=== PATIENT | female | born 1985 | race Caucasian/White ===

== ENCOUNTER 2023-05-12 18:58 | Emergency (ER) | payer OTHER, SELFPAY ==
[2023-05-12 19:01] VITALS: BP 160/87; PULSE 71; RESP 20; TEMP 36.9; O2SAT 97; BMI 31.6
--- NOTE | 2023-05-12 19:26 | ED.LOWEXI1 ---
HPI - Extremity Injury (Lower) General Chief Complaint: Extremity Injury, Lower Stated Complaint: LT FOOT PAIN Time Seen by Provider: 05/12/23 19:25 Source: patient Mode of arrival: walk-in Limitations: no limitations History of Present Illness HPI Narrative: This 38-year-old female who had bunion surgery and ligament or tendon surgery with Dr. Sanchez in 2020 presents for evaluation of ongoing left foot pain and numbness after she has been walking for a period of time. She denies any recent injury. She has no Pain or swelling. She states she cannot find any shoes that fit her. I offered her several options for shoes that are loosefitting but she states she cannot afford them. She states she tried to call Dr. Sanchez's office at 4:57 PM today but the office was closed. She requests something to wear on her foot like a boot so that she can be more ambulatory for longer periods of time. No additional injuries or complaints. Related Data Home Medications Medication Instructions Recorded Confirmed aripiprazole lauroxil 1,064 mg/3.9 1,064 mg IM .every 2 months 05/12/23 05/12/23 mL suspension,ext.rel IM syringe (Aristada) Allergies Allergy/AdvReac Type Severity Reaction Status Date / Time No Known Drug Allergies Allergy Verified 05/12/23 19:01 Review of Systems ROS Status of ROS 10 or more systems reviewed and unremarkable except as noted in history and below Exam Constitutional Vital Signs - 24 hr 05/12/23 19:01 Temperature 98.5 F Pulse Rate [Monitor] 71 Respiratory Rate 20 Blood Pressure [Right Arm] 160/87 H Pulse Oximetry 97 Oxygen Delivery Method Room Air Documenting provider has reviewed patient's vital signs: yes Common normals: no apparent distress General appearance: cooperative and comfortable Nutritional appearance: overweight Orientation/consciousness: Yes awake, Yes oriented to person, Yes oriented to place and Yes oriented to time Extremity General: normal exam except as noted and other findings (See MDM) Neuro Common normals: oriented x3 Psych Common normals: mental status grossly normal Course Vital Signs Vital signs: Vital Signs Temperature 98.5 F 05/12/23 19:01 Pulse Rate 71 05/12/23 19:01 Respiratory Rate 20 05/12/23 19:01 Blood Pressure 160/87 H 05/12/23 19:01 Pulse Oximetry 97 05/12/23 19:01 Oxygen Delivery Method Room Air 05/12/23 19:01 Temperature 98.5 F 05/12/23 19:01 Pulse Rate 71 05/12/23 19:01 Respiratory Rate 20 05/12/23 19:01 Blood Pressure 160/87 H 05/12/23 19:01 Pulse Oximetry 97 05/12/23 19:01 Oxygen Delivery Method Room Air 05/12/23 19:01 MDM - Extremity Injury (Lower) MDM Narrative Medical decision making narrative: This 38-year-old female who is status post bunion surgery and ligament or tendon repair on the lateral aspect of her left ankle presents for evaluation of left foot pain and numbness when she has been ambulatory for an hour or more. She states that she cannot find any shoes that fit her feet. When I offered her several shoe options she stated that she did not think that she would like them and she could not afford them. She has not had any recent trauma to her foot. She has a well-healed incision on the medial aspect of the left foot with a plate and screws in this area. She is able to move her great toe without difficulty but the remainder of her toes are limited in movement. Her feet are warm and sensate. There is an incision on the lateral aspect of the left ankle. Achilles is intact. There is no sign of any infection. An x-ray of the left foot shows hardware intact With no sign of fracture or dislocation. The patient requests that she be given a walking boot. I explained to her that I do not have any walking boots but I will provide her with a postop shoe as this may help her with ambulation until she can be seen in follow-up with Dr. Sanchez. I strongly encouraged her to follow up with Dr. Sanchez and explained that he would want to know she was having any consultations or difficulty after his surgery. She was medicated emergency department with ibuprofen and will be discharged home with her postop shoe and a prescription for ibuprofen Discharge Plan Discharge Chief Complaint: Extremity Injury, Lower Clinical Impression: Post-op pain, Chronic pain in left foot Time of Disposition Decision: 19:55 Condition: Good Prescriptions / Home Meds: No Action Aristada 1,064 mg/3.9 mL suspension,extended rel syring 1,064 mg IM .every 2 months Instructions: Metatarsalgia (DC) Additional Instructions: Call Dr Sanchez's office for further evaluation and treatment Stand Alone Forms: Portal Instructions Referrals: Kendell Rose MD [Primary Care Provider] - 1 week
--- NOTE | 2023-05-12 19:33 | XR_ITS ---
The [address] [address] Patient Name: KAR SOLIS MRN: [id number] date: 1985 Sex: F Assigned Patient Location: ER Current Patient Location: Accession/Order Number: [id number] Exam Date: 05/12/2023 19:40 Report Date: 05/12/2023 20:12 At the request of: MARLIN MARKER Procedure: XR foot LT min 3V EXAM: XR foot LT min 3V HISTORY: Left foot pain COMPARISON: X-rays 10/23/2021 TECHNIQUE: 3 views FINDINGS: IMPRESSION: Patient is status post first tarsometatarsal and first metatarsal/intermediate cuneiform instrumentation. Internal hardware exhibits no gross fracture. However, again demonstrated is approximately 3.5 mm of the proximal medial cuneiform screw purchasing the lateral cortex of the medial cuneiform extending into the medial cuneiform/intermediate cuneiform joint space with presumed cortical irregularity of the medial aspect of the intermediate cuneiform. No abnormal lucency surrounding the screws. The first tarsometatarsal arthrodesis appears ossified. Degenerative changes of the first metatarsal head. Remainder of the joint spaces are unremarkable. Electronically authenticated by: ARTHUR CALDERON Date: 05/12/2023 20:12
[2023-05-12] MEDS: IBUPROFEN 600 MG TABLET PO (20:06)
== END 2023-05-12 20:11 | disposition home or self-care (01) ==
PROVIDERS: Emergency Provider Emergency Medicine; PCP Family Medicine
DX: M79.672 Pain in left foot (principal); G89.28 Other chronic postprocedural pain; Z79.899 Other long term (current) drug therapy
CPT/HCPCS: 73630; 99283

== ENCOUNTER 2023-05-20 11:45 | Outpatient (OUT) | payer OTHER, SELFPAY ==
[2023-05-20 11:59] LABS: Basophils Percent Auto 0.4 % (0.2-2.0); Eosinophils Absolute Auto 0.1 10^3/uL (0.0-0.7); Eosinophils Percent Auto 1.4 % (0.9-7.0); Hemoglobin 14.4 g/dL (12.0-16.0); Immature Granulocytes Abs Auto 0.04 10^3/uL (0.00-0.03); Immature Granulocytes Pct Auto 0.5 % (0.0-0.5); Lymphocytes Absolute Auto 2.7 10^3/uL (1.2-3.8); Lymphocytes Percent Auto 35.2 % (20.5-60.0); Mean Corpuscular HGB Conc 35.1 g/dL (29.9-35.2); Mean Corpuscular Hemoglobin 29.2 pg (26.7-34.0); Mean Corpuscular Volume 83.2 fL (81.0-99.0); Mean Platelet Volume 9.7 fL (9.5-13.5); Monocytes Absolute Auto 0.4 10^3/uL (0.3-0.8); Monocytes Percent Auto 5.7 % (1.7-12.0); Neutrophils Absolute Auto 4.3 10^3/uL (1.4-6.5); Neutrophils Percent Auto 56.8 % (43.0-75.0); Platelet Count 185 10^3/uL (150-450); Red Blood Count 4.93 10^6/uL (4.20-5.40); Red Cell Distribution Width 12.6 % (11.0-15.0); White Blood Count 7.6 10^3/uL (4.0-11.0)
[2023-05-20 12:23] LABS: Estimated Average Glucose 143 mg/dL; Glycohemoglobin A1C 6.6 % (4.5-6.2)
[2023-05-20 14:01] LABS: Alanine Aminotransferase 30 U/L (14-59); Albumin Level 3.5 g/dL (3.4-5.0); Alkaline Phosphatase 94 U/L (46-116); Aspartate Amino Transferase 8 U/L (15-37); BUN Creatinine Ratio 17.5; Bilirubin Total 0.4 mg/dL (0.2-1.0); Calcium 8.8 mg/dL (8.5-10.1); Carbon Dioxide 27.1 mmol/L (21.0-32.0); Chloride 106 mmol/L (98-107); Cholesterol 199 mg/dL (<=200); Estimated GFR (African America >60 (>=60); Estimated GFR (Non-African Ame >60 (>=60); Free T3 2.81 pg/mL (2.18-3.98); Globulin 3.5 g/dL; Glucose 155 mg/dL (74-106); HDL Cholesterol 33 mg/dL (40-60); Potassium 4.1 mmol/L (3.5-5.1); Sodium 141 mmol/L (136-145); Thyroid Stimulating Hormone 1.801 uIU/mL (0.358-3.740); Triglycerides 457 mg/dL (<=150); VLDL CHOLESTEROL 91.4 mg/dL
[2023-05-20 14:08] LABS: LDL Cholesterol Direct 85 mg/dL
== END 2023-05-20 11:46 | disposition home or self-care (01) ==
LOC: LAB 11:45
PROVIDERS: PCP Family Medicine; Visit Provider Family Medicine
DX: E13.9 Other specified diabetes mellitus without complications (principal)
CPT/HCPCS: 36415; 80053; 80061; 83036; 83540; 83721; 84436; 84443; 84481; 85025

== ENCOUNTER 2023-09-25 11:11 | Outpatient (OUT) | payer OTHER, SELFPAY ==
[2023-09-28 06:08] LABS: H. pylori Stool Ag, EIA Negative (Negative)
== END 2023-09-25 11:12 | disposition home or self-care (01) ==
PROVIDERS: PCP Family Medicine; Visit Provider Family Medicine
DX: R10.84 Generalized abdominal pain (principal); R14.2 Eructation
CPT/HCPCS: 87338

== ENCOUNTER 2023-10-01 16:21 | Emergency (ER) | payer OTHER, SELFPAY ==
[2023-10-01 16:25] VITALS: BP 111/70; PULSE 66; RESP 18; TEMP 36.8; O2SAT 99
--- NOTE | 2023-10-01 16:58 | ED_ITS ---
HPI - Abdominal Pain General Chief Complaint: Abdominal Pain Stated Complaint: Bleed Rectom Time Seen by Provider: 10/01/23 16:27 Source: patient Mode of arrival: walk-in Limitations: no limitations History of Present Illness HPI narrative: patient is a 38-year-old female who presents to the emergency department for the evaluation of bright red blood per rectum. patient states while having a bowel movement today, she noted bright red blood with no clots. She states she is having left lower quadrant abdominal pain. She states she has had ongoing intermittent issues with rectal bleeding for years, she had a colonoscopy for this five years ago that was unremarkable. She states that her PCP Dr. Rose prescribed her cream for her rectum although she states she was told she had no hemorrhoids, and if the cream did not help she should have further workup in the Emergency Room. She has had a previous hysterectomy. No medications taken prior to arrival. Related Data Home Medications Medication Instructions Recorded Confirmed aripiprazole lauroxil 1,064 mg/3.9 1,064 mg IM .every 2 months 05/12/23 05/12/23 mL suspension,ext.rel IM syringe (Aristada) Allergies Allergy/AdvReac Type Severity Reaction Status Date / Time No Known Drug Allergies Allergy Verified 05/12/23 19:01 Review of Systems ROS Constitutional Denies: fever or chills Ears, nose, mouth, and throat Denies: throat pain Cardiovascular Denies: chest pain Respiratory Denies: shortness of breath or cough Gastrointestinal Reports: abdominal pain, nausea and blood in stool; Denies: vomiting or diarrhea Genitourinary Denies: painful urination Musculoskeletal Denies: back pain Integumentary/Breast Denies: rash Exam Narrative Exam Narrative: Gen.: Awake, alert, in no distress Head: Normocephalic, atraumatic ENT: Moist mucous membranes Respiratory: No respiratory distress Gastrointestinal: Abdomen is soft, nondistended and nontender to palpation Rectal: patient examined with Sandra Hernández RN at bedside throughout the duration of the exam. Rectal exam with no active bleeding per rectum, no hemorrhoids noted. Extremities: Moves extremities equally Psych: Normal mood and affect Neuro: No focal neuro deficit Skin: Warm, dry, intact Constitutional Vital Signs, click to edit/add: Last Vital Signs Temp 98.2 F 10/01/23 16:25 Pulse 72 10/01/23 17:40 Resp 18 10/01/23 17:40 BP 132/78 10/01/23 17:40 Pulse Ox 97 10/01/23 17:40 O2 Del Method Room Air 10/01/23 17:40 Course Vital Signs Vital signs: Vital Signs Temperature 98.2 F 10/01/23 16:25 Pulse Rate 66 10/01/23 16:25 Respiratory Rate 18 10/01/23 16:25 Blood Pressure 111/70 10/01/23 16:25 Pulse Oximetry 99 10/01/23 16:25 Oxygen Delivery Method Room Air 10/01/23 16:25 Temperature 98.2 F 10/01/23 16:25 Pulse Rate 72 10/01/23 17:40 Respiratory Rate 18 10/01/23 17:40 Blood Pressure 132/78 10/01/23 17:40 Pulse Oximetry 97 10/01/23 17:40 Oxygen Delivery Method Room Air 10/01/23 17:40 MDM - Abdominal Pain MDM Narrative Medical decision making narrative: lab studies within normal limits, patient with a benign exam, normal vital signs. CT of the abdomen and pelvis with no evidence of acute process. Patient discharged home to follow-up with general surgery for consideration of another colonoscopy as well as her PCP for further evaluation and treatment. Return to the [facility] if symptoms change or worsen. Medical Records Attestation: I reviewed the patient's medical records. Lab Data Attestation: I reviewed the patient's lab results. Labs: Lab Results 10/01/23 10/01/23 Range/Units 17:00 17:08 WBC 9.5 (4.0-11.0) 10^3/uL RBC 4.57 (4.20-5.40) 10^6/uL Hgb 13.7 (12.0-16.0) g/dL Hct 40.0 (36.0-48.0) % MCV 87.5 (81.0-99.0) fL MCH 30.0 (26.7-34.0) pg MCHC 34.3 (29.9-35.2) g/dL RDW 12.5 (11.0-15.0) % Plt Count 209 (150-450) 10^3/uL MPV 9.7 (9.5-13.5) fL Neut % (Auto) 58.8 (43.0-75.0) % Lymph % (Auto) 33.6 (20.5-60.0) % Stephens % (Auto) 4.6 (1.7-12.0) % Eos % (Auto) 2.1 (0.9-7.0) % Baso % (Auto) 0.6 (0.2-2.0) % Neut # (Auto) 5.6 (1.4-6.5) 10^3/uL Lymph # (Auto) 3.2 (1.2-3.8) 10^3/uL Stephens # (Auto) 0.4 (0.3-0.8) 10^3/uL Eos # (Auto) 0.2 (0.0-0.7) 10^3/uL Baso # (Auto) 0.1 (0.0-0.1) 10^3/uL Abs Immat Gran (auto) 0.03 (0.00-0.03) 10^3/uL Imm/Tot Granulo (auto) 0.3 (0.0-0.5) % Sodium 144 (136-145) mmol/L Potassium 3.7 (3.5-5.1) mmol/L Chloride 105 (98-107) mmol/L Carbon Dioxide 29.0 (21.0-32.0) mmol/L Anion Gap 13.7 BUN 12.0 (7.0-18.0) mg/dL Creatinine 0.76 (0.55-1.02) mg/dL Est GFR ( Amer) >60 (>=60) Est GFR (Non-Af Amer) >60 (>=60) BUN/Creatinine Ratio 15.8 Glucose 146 H (74-106) mg/dL Calcium 9.2 (8.5-10.1) mg/dL Total Bilirubin 0.4 (0.2-1.0) mg/dL AST 26 (15-37) U/L ALT 47 (14-59) U/L Alkaline Phosphatase 90 (46-116) U/L Total Protein 7.5 (6.4-8.2) g/dL Albumin 4.0 (3.4-5.0) g/dL Globulin 3.5 g/dL Albumin/Globulin Ratio 1.1 Urine Color Lt. yellow (YELLOW) Urine Clarity Clear (CLEAR) Urine pH 6.0 (5.0-9.0) Ur Specific [place] 1.015 (1.005-1.025) Urine Protein Negative (NEG/TRACE) mg/dL Urine Glucose (UA) Negative (NEGATIVE) mg/dL Urine Ketones Negative (NEGATIVE) mg/dL Urine Occult Blood Negative (NEGATIVE) Urine Nitrite Negative (NEGATIVE) Urine Bilirubin Negative (NEGATIVE) Urine Urobilinogen 0.2 (0.2-1.0) EU/dL Ur Leukocyte Esterase Negative (NEGATIVE) Imaging Data CT scan - abdomen: Attestation: I have reviewed the pertinent imaging results. Radiologist's impression: Procedure: CT abdomen pelvis w con EXAM: CT abdomen pelvis w con TECHNIQUE: Axial CT images were obtained of the abdomen and pelvis with intravenous contrast. Sagittal and coronal reformatted images were also obtained. Dose reduction techniques were achieved by using automated exposure control and/or adjustment of mA and/or kV according to patient size and/or use of iterative reconstruction technique. HISTORY: Rectal bleeding, abdominal pain COMPARISON: 06/26/2020 FINDINGS: Lower chest: The lower lungs are clear. Liver: The liver is homogeneous with normal contours and normal size. Gallbladder: The gallbladder is unremarkable. There is no intra or extrahepatic biliary dilatation. Pancreas: The pancreas is homogeneous without evidence for mass lesion or inflammation. Spleen: The spleen is unremarkable without evidence for mass lesion. Adrenal glands: The adrenal glands are unremarkable Kidneys and bladder: The kidneys are unremarkable with no evidence for mass lesion, hydronephrosis or inflammation. The ureters demonstrate normal caliber. The urinary bladder is unremarkable. GI Tract: Stomach is unremarkable. Visualized small bowel is unremarkable without evidence for obstruction or active inflammation. The appendix is unremarkable.Diverticula are seen of the colon, more significant involving the distal colon. The visualized large bowel is otherwise unremarkable. Reproductive: The uterus has been removed. Lymph nodes: No retroperitoneal or abdominal lymphadenopathy. Vascular: The aorta is not dilated. Mesenteric vessels are patent. Peritoneum: No free intraperitoneal air or fluid. No acute inflammation. Abdominal wall: Unremarkable without acute abnormality. IMPRESSION: No acute abdominal pathology. No acute inflammatory process. No obstructing urinary tract stone. No evidence for bowel obstruction. Electronically authenticated by: MARKUS FABIAN Date: 10/01/2023 18:37 Discharge Plan Discharge Chief Complaint: Abdominal Pain Clinical Impression: Rectal bleeding Patient Disposition: Home, Self-Care Time of Disposition Decision: 18:41 Condition: Good Prescriptions / Home Meds: No Action Aristada 1,064 mg/3.9 mL suspension,extended rel syring 1,064 mg IM .every 2 months Instructions: Rectal Bleeding (ED) Stand Alone Forms: Portal Instructions Referrals: Kendell Rose MD [Primary Care Provider] - 1 week
[2023-10-01] MEDS: HYOSCYAMINE SULFATE 0.125 MG TAB.SUBL SL (17:06)
[2023-10-01] MEDS: ONDANSETRON PF 4 MG/2 ML VIAL IV (17:07)
[2023-10-01] MEDS: KETOROLAC TROMETHAMINE 30 MG/ML VIAL 15 MG IVP (17:07)
[2023-10-01] MEDS: 0.9 % SODIUM CHLORIDE 1,000 ML 999 ML IV (17:08)
[2023-10-01 17:16] LABS: Basophils Absolute Auto 0.1 10^3/uL (0.0-0.1); Basophils Percent Auto 0.6 % (0.2-2.0); Eosinophils Absolute Auto 0.2 10^3/uL (0.0-0.7); Eosinophils Percent Auto 2.1 % (0.9-7.0); Hemoglobin 13.7 g/dL (12.0-16.0); Immature Granulocytes Abs Auto 0.03 10^3/uL (0.00-0.03); Immature Granulocytes Pct Auto 0.3 % (0.0-0.5); Lymphocytes Absolute Auto 3.2 10^3/uL (1.2-3.8); Lymphocytes Percent Auto 33.6 % (20.5-60.0); Mean Corpuscular HGB Conc 34.3 g/dL (29.9-35.2); Mean Corpuscular Volume 87.5 fL (81.0-99.0); Mean Platelet Volume 9.7 fL (9.5-13.5); Monocytes Absolute Auto 0.4 10^3/uL (0.3-0.8); Monocytes Percent Auto 4.6 % (1.7-12.0); Neutrophils Absolute Auto 5.6 10^3/uL (1.4-6.5); Neutrophils Percent Auto 58.8 % (43.0-75.0); Platelet Count 209 10^3/uL (150-450); Red Blood Count 4.57 10^6/uL (4.20-5.40); Red Cell Distribution Width 12.5 % (11.0-15.0); White Blood Count 9.5 10^3/uL (4.0-11.0)
[2023-10-01 17:17] LABS: Bilirubin Urine NEGATIVE (NEGATIVE); Blood Urine NEGATIVE (NEGATIVE); Clarity Urine CLEAR (CLEAR); Color Urine LT. YELLOW (YELLOW); Glucose Urine UA NEGATIVE (NEGATIVE); Ketones Urine NEGATIVE (NEGATIVE); Leukocyte Esterase Urine NEGATIVE (NEGATIVE); Nitrite Urine NEGATIVE (NEGATIVE); Protein Urine NEGATIVE (NEG/TRACE); Specific Gravity Urine 1.015 (1.005-1.025); Urobilinogen Urine 0.2 EU/dL (0.2-1.0)
[2023-10-01 17:19] LABS: Urine Microscopic Indicated NO
[2023-10-01 17:38] LABS: Alanine Aminotransferase 47 U/L (14-59); Albumin Globulin Ratio 1.1; Alkaline Phosphatase 90 U/L (46-116); Anion Gap 13.7; Aspartate Amino Transferase 26 U/L (15-37); BUN Creatinine Ratio 15.8; Bilirubin Total 0.4 mg/dL (0.2-1.0); Calcium 9.2 mg/dL (8.5-10.1); Chloride 105 mmol/L (98-107); Estimated GFR (African America >60 (>=60); Estimated GFR (Non-African Ame >60 (>=60); Globulin 3.5 g/dL; Glucose 146 mg/dL (74-106); Potassium 3.7 mmol/L (3.5-5.1); Sodium 144 mmol/L (136-145); Total Protein 7.5 g/dL (6.4-8.2)
[2023-10-01 17:40] VITALS: BP 132/78; PULSE 72; RESP 18; O2SAT 97
== END 2023-10-01 18:51 | disposition home or self-care (01) ==
PROVIDERS: Physician Assistant; Emergency Provider Emergency Medicine; PCP Family Medicine
DX: K62.5 Hemorrhage of anus and rectum (principal)
CPT/HCPCS: 36415; 74177; 80053; 81003; 85025; 96374; 96375; 99285; Q9967

== ENCOUNTER 2024-01-15 10:03 | Outpatient (OUT) | payer OTHER, SELFPAY ==
[2024-01-15 10:23] LABS: Basophils Percent Auto 0.4 % (0.2-2.0); Eosinophils Absolute Auto 0.2 10^3/uL (0.0-0.7); Hematocrit 41.6 % (36.0-48.0); Hemoglobin 14.2 g/dL (12.0-16.0); Immature Granulocytes Abs Auto 0.03 10^3/uL (0.00-0.03); Immature Granulocytes Pct Auto 0.4 % (0.0-0.5); Lymphocytes Percent Auto 37.1 % (20.5-60.0); Mean Corpuscular HGB Conc 34.1 g/dL (29.9-35.2); Mean Corpuscular Hemoglobin 29.4 pg (26.7-34.0); Mean Corpuscular Volume 86.1 fL (81.0-99.0); Mean Platelet Volume 9.5 fL (9.5-13.5); Monocytes Absolute Auto 0.5 10^3/uL (0.3-0.8); Monocytes Percent Auto 6.3 % (1.7-12.0); Neutrophils Absolute Auto 4.4 10^3/uL (1.4-6.5); Neutrophils Percent Auto 53.8 % (43.0-75.0); Platelet Count 232 10^3/uL (150-450); Red Blood Count 4.83 10^6/uL (4.20-5.40); Red Cell Distribution Width 12.1 % (11.0-15.0); White Blood Count 8.1 10^3/uL (4.0-11.0)
[2024-01-15 10:43] LABS: Estimated Average Glucose 140 mg/dL; Glycohemoglobin A1C 6.5 % (4.5-6.2)
[2024-01-15 11:22] LABS: Alanine Aminotransferase 39 U/L (14-59); Albumin Level 3.7 g/dL (3.4-5.0); Alkaline Phosphatase 82 U/L (46-116); Anion Gap 11.4; Aspartate Amino Transferase 24 U/L (15-37); BUN Creatinine Ratio 13.6; Bilirubin Total 0.4 mg/dL (0.2-1.0); Carbon Dioxide 29.8 mmol/L (21.0-32.0); Chloride 107 mmol/L (98-107); Chol HDL Ratio 4.7; Cholesterol 200 mg/dL (<=200); Estimated GFR (African America >60 (>=60); Estimated GFR (Non-African Ame >60 (>=60); Free T3 2.88 pg/mL (2.18-3.98); Globulin 3.6 g/dL; Glucose 123 mg/dL (74-106); HDL Cholesterol 43 mg/dL (40-60); Potassium 4.2 mmol/L (3.5-5.1); Sodium 144 mmol/L (136-145); Thyroid Stimulating Hormone 1.433 uIU/mL (0.358-3.740); Total Protein 7.3 g/dL (6.4-8.2); Triglycerides 191 mg/dL (<=150); VLDL CHOLESTEROL 38.2 mg/dL
== END 2024-01-15 10:04 | disposition home or self-care (01) ==
LOC: LAB 10:04
PROVIDERS: PCP Family Medicine; Visit Provider Family Medicine
DX: E13.9 Other specified diabetes mellitus without complications (principal); D64.9 Anemia, unspecified
CPT/HCPCS: 36415; 80053; 80061; 83036; 83540; 84436; 84443; 84481; 85025

== ENCOUNTER 2024-05-09 14:49 | Outpatient (OUT) | payer OTHER, SELFPAY ==
--- NOTE | 2024-05-09 14:51 | VEIN_ITS ---
The [address] [address] Patient Name: KAR SOLIS MRN: [id number] date: 1985 Sex: F Assigned Patient Location: Current Patient Location: Accession/Order Number: [id number] Exam Date: 05/09/2024 14:51 Report Date: 05/11/2024 10:59 At the request of: HARPER LOPEZ Procedure: VC Ankle Brachial Index EXAM: VC Ankle Brachial Index HISTORY: R09.89 , left leg pain Indication: COMPARISON: None. FINDINGS: Segmental pressures presented as follows (right, left) in mmHg. Brachial: 141, 151 DPA: 179, 161 FIELD SERVICER: 184, 156 1st Toe: 110, 115 EDWAR: 1.22, 1.07 TBI: 0.73, 0.76 The ABIs are Normal The TBI's are normal PVR waveforms: Not ordered VEIN/VC Ankle Brachial Index IMPRESSION: Normal exam Electronically authenticated by: ARTHUR MONTOYA Date: 05/11/2024 10:59
--- OUTSIDE RECORDS SUMMARY | 2024-05-09 15:03 | XMS_ITS | CCD ---
Author Organization [facility] Care Team Providers Care Promotions Executive Producer Name Role Phone INDURTI, FERNANDO V Unavailable Unavailable INDURTI, FERNANDO V Unavailable Unavailable JAMIL PECK Unavailable Unavailable Harper Rose Primary Care Physician [phone] Justin ROTH Attending Unavailable Justin ROTH Attending Unavailable Albertoy Harper SINGLETON Referring Unavailabl e MARKER ., DR ISAAC Admitting Unavailable MARKER ., DR ISAAC Consulting Unavailable MARKER ., DR ISAAC Attending Unavailable HOY ., DR SALEEM Primary Care Unavailable HOY ., DR SALEEM Consulting Unavailable HOY ., DR SALEEM Attending Unavailable HOY ., DR SALEEM Admitting Unavailable HOY ., DR SALEEM Primary Care Unavailable HOY ., DR SALEEM Consulting Unavailable HOY ., DR SALEEM Attending Unavailable HOY ., DR SALEEM Admitting Unavailable HOY ., DR SALEEM Primary Care Unavailable Norman Issa Attending Unavailab Norman Delarosa Admitting Unavailab Harper Black Primary Care Unavailable Allergies Allergy Classification Reported Allergen(s) Allergy Type Date of Onset Reaction(s) Facility (1 source) No Known Medication Allergies; Translations: [No Known Medication Allergies] Propensity to adverse reactions (disorder) [facility] Repository (1 source) Ciprofloxacin Drug Allergy [address] [place] [address] Repository Medications Current Medications Medication Drug Class(es) Dates Sig (Normalized) Sig (Original) 3.9 ml ARIPiprazole lauroxil 273 mg/ml prefilled syringe (2 sources) Start: 07-08-2020 Aristada 1064 mg/3.9 mL intramuscular suspension, extended release 1,064 mg, IntraMuscular, q4wk, Refills(s) 0 Start Date: 07/08/20 Status: Ordered fenofibrate 145 mg oral tablet (2 sources) Peroxisome Proliferator Receptor alpha Agonist Start: 08-12-2022 take 1 tablet by mouth once daily fenofibrate 145 mg Tab 145 mg = 1 tab(s), Oral, Daily, Refills(s) 0 Start Date: 08/12/22 Status: Ordered Lantus Solostar Pen (2 sources) Start: 07-08-2020 inject 50 [IU] by subcutaneous injection twice daily Lantus Solostar Pen 50 unit(s), SubCutaneous, BID, Refill(s) 0 Start Date: 07/08/20 Status: Ordered rosuvastatin calcium 10 mg oral tablet (2 sources) HMG-CoA Reductase Inhibitor Start: 08-12-2022 take 1 tablet by mouth once daily Crestor 10 mg Tab 10 mg = 1 tab(s), Oral, Daily, Refills(s) 0 Start Date: 08/12/22 Status: Ordered Problems Active Problems Problem Classification Problem Date Documented Da te Episodic/Chronic Alcohol-related disorders (2 sources) Alcoholism 07-08-2020 Chronic Anxiety disorders (2 sources) Anxiety 07-08-2020 Chronic Diabetes mellitus with complications (1 source) Type 2 diabetes mellitus with diabetic neuropathy, unspecified; Translations: [TYPE 2 DM W/DIABETIC NEUROPATHY UNS] Onset: 07-31-2022 Chronic Diabetes mellitus without complication (3 sources) Type 2 diabetes mellitus; Translations: [Type 2 diabetes mellitus without complications] Onset: 03-25-2023 07-08-2020 Chronic Disorders of lipid metabolism (6 sources) Pure hypercholesterolemia; Translations: [Pure hypercholesterolemia, unspecified] Onset: 07-25-2022 08-12-2022 Chronic Diverticulosis and diverticulitis (2 sources) Diverticulosis of sigmoid colon 07-17-2020 Chronic E Codes: Natural/environment (1 source) Bitten or stung by nonvenomous insect and other nonvenomous arthropods, initial encounter; Translations: [BITTEN NONVENOM INSCT OTH ARTH INIT] Onset: 03-25-2023 Episodic Gastrointestinal hemorrhage (2 sources) Rectal hemorrhage 07-08-2020 Episodic Hemorrhoids (3 sources) Hemorrhoids; Translations: [Anal skin tag] 07-08-2020 Episodic Malaise and fatigue (1 source) Other malaise; Translations: [OTHER MALAISE] Onset: 03-25-2023 Episodic Mood disorders (2 sources) Depressive disorder 07-08-2020 Chronic Other aftercare (1 source) Other truck terminal manager (current) drug therapy; Translations: [OTH CORRECTION CURRENT DRUG THERAPY] Onset: 03-25-2023 Episodic Other aftercare (1 source) long term care phlebotomist (current) use of insulin; Translations: [CORRECTION CURRENT USE OF INSULIN] Onset: 03-25-2023 Episodic Other nutritional; endocrine; and metabolic disorders (2 sources) Body mass index 30+ - obesity 08-18-2022 Chronic Residual codes; unclassified (2 sources) Insomnia 07-08-2020 Episodic Residual codes; unclassified (2 sources) Tobacco user 07-17-2020 Episodic Residual codes; unclassified (1 source) Acquired absence of both cervix and uterus; Translations: [ACQUIRED ABSENCE BOTH CERVIX AND UTERUS] Onset: 03-25-2023 Episodic Schizophrenia and other psychotic disorders (5 sources) Schizoaffective disorder, unspecified; Translations: [Paranoid schizophrenia] Onset: 02-08-2018 07-08-2020 Chronic Screening and history of mental health and substance abuse codes (1 source) Tobacco use and exposure - finding 08-23-2022 Chronic Substance-related disorders (2 sources) Cannabis abuse 07-08-2020 Chronic Superficial injury; contusion (4 sources) Insect bite (nonvenomous) of right forearm, initial encounter; Translations: [INSECT BITE RIGHT FOREARM INITIAL] Onset: 03-24-2023 Episodic Unclassified (2 sources) CONTACT W/AND (SUSP) EXPOS COVID-19; Translations: [CONTACT W/AND (SUSP) EXPOS COVID-19] Onset: 10-24-2022 Viral infection (1 source) COVID-19; Translations: [COVID-19] Onset: 10-24-2022 Past or Other Problems Problem Classification Problem Date Documented Da te Episodic/Chronic Allergic reactions (3 sources) Eczema; Translations: [Dermatitis, unspecified] Onset: 07-31-2022 07-08-2020 Episodic Deficiency and other anemia (1 source) Anemia, unspecified; Translations: [ANEMIA UNSPECIFIED] Onset: 07-31-2022 Episodic Diabetes mellitus without complication (1 source) Other abnormal glucose; Translations: [OTHER ABNORMAL GLUCOSE] Onset: 07-31-2022 Episodic Unclassified (1 source) CONTACT W/AND (SUSP) EXPOS COVID-19; Translations: [CONTACT W/AND (SUSP) EXPOS COVID-19] Onset: 10-20-2022 Results Test Name Value Interpretation Reference Range Facility Covid-19 PCR (CVDTB)on SARS-CoV-2 (COVID-19) RNA DENIA+probe Ql (Unsp spec) Detected Critically abnormal NOT DETECTED [facility] Comment on above: Result Comment: This test is not yet approved or cleared by the [place] FDA. When there are no FDA-approved or cleared tests available, and other criteria are met, FDA can make tests available under an emergency access mechanism called an Emergency Use Authorization (EUA). The EUA for this test is supported by the [place] of Health and Human Service's (HHS's) declaration that circumstances exist to justify the emergency use of in vitro diagnostics for the detection and/or diagnosis of the virus that causes COVID-19. This EUA will remain in effect (meaning this test can be used) for the duration of the COVID-19 declaration justifying emergency of IVDs, unless it is terminated or revoked by FDA (after which the test may no longer be used). Performed By: #### C [facility] #### [facility] [address] [place] [address] Dr. Evangelina Eng General Surgery Office/Clini c Noteon 09-28-2022 General Surgery Office/Clinic Note Chief Complaint in-office excisional biopsy HPI Staff Presents for in-office excisional biopsy anal skin tag. History of Present Illness patient here for excisional biopsy of irritated anal skin tag under local anesthesia; no change since recent evaluation. Review of Systems ROS - Provider Constitutional: no fever, no sweats, no weight loss. Eyes: no glasses, no blurred vision, no visual loss. ENMT: no dentures, no hoarseness, no swallowing difficulties, no hearing loss, no ear infection(s), no nose bleeds. Cardiovascular: normal blood pressure, no chest pain, regular heartbeat, no heart murmur. Respiratory: no shortness of breath, no cough, no asthma, no wheezing. Gastrointestinal: no nausea, no vomiting, no diarrhea, no constipation, no blood in stool, no change in bowel habits, no abdominal pain, no hepatitis. Genitourinary: no kidney stones, no urine infection, no dysuria. Musculoskeletal: no pain, no weakness. Skin: no changing moles, no rash, no skin lumps. Neurologic: no seizures, no epilepsy, no headache. Psychiatric: no emotional or psychiatric problem. Heme/Lymph: no bleeding problems, no anemia, no blood clots, no transfusions. Allergy/Immunologic: no swollen lymph nodes/glands, no IV drug abuse. Other: Additional ROS info: Except as noted in the above Review of Systems and in the History of Present Illness, all other systems have been reviewed and are negative or noncontributory. Physical Exam rectal: 1.5 cm x .5 cm anal skin tag, left lateral. Assessment/Plan 1. Anal skin tag (K64.4: Residual hemorrhoidal skin tags) area excised under local anesthesia with 1 % lidocaine, plain; with electrocautery; tolerated well, good hemostasis; keep area clean and dry; sitz baths prn; take ibuprofen as needed for pain; call with problems/questions. Follow-up No qualifying data available Problem List/Past Medical History Ongoing Alcoholism Anal skin tag Anxiety BMI 33.0-33.9,adult Cannabis abuse Controlled type 2 diabetes mellitus with diabetic neuropathy Depression Eczema Hemorrhoids Insomnia Paranoid schizophrenia Pure hypercholesterolemia Rectal bleeding Sigmoid diverticulosis Tobacco abuse Tobacco use Historical No qualifying data Procedure/Surgical History Colonoscopy (07/31/2020), Colonoscopy (08/26/2016), Sling procedure of bladder neck (11/15/2015), GALE - Total abdominal hysterectomy (11/15/2015), Exploratory laparotomy, Removal of ovarian cyst. Medications Aristada 1064 mg/3.9 mL intramuscular suspension, extended release, 1064 mg, IntraMuscular, q4wk Crestor 10 mg Tab, 10 mg= 1 tab(s), Oral, Daily fenofibrate 145 mg Tab, 145 mg= 1 tab(s), Oral, Daily Lantus Solostar Pen, 50 unit(s), SubCutaneous, BID Allergies No Known Allergies No Known Medication Allergies Social History Alcohol Current, Wine, 1-2 times per year, 07/09/2020 Substance Abuse - Denies Substance Abuse, 07/09/2020 Tobacco 10 or more cigarettes (1/2 pack or more)/day in last 30 days Tobacco Use:. Never Smokeless Tobacco Use:. Cigarettes, 1 per day. 14 year(s). Started age 12.0 Years. Yes, 08/18/2022 Family History Cardiac arrest: Mother. Diabetes mellitus type 2: Mother. [facility] Comment on above: Result Comment: Elec tronically Signed By: IRA COREY, Justin Rainey\.br\Date and Time Signed: 09/28/22 16:13 EST Pathology Noteon 09-11-2022 Pathology Note [id number]: 127 [facility] Ambulatory Visit Summaryon 1 Ambulatory Visit Summary REBA DEL RIO :1985 Visit Date:09/08/2022 Ambulatory Visit Instructions Your Care Team Attending Physician - IRA COREY, Justin Rainey Primary Care Physician - Harper Rose MD This Is Your Medications List aripiprazole (Aristada 1064 mg/3.9 mL intramuscular suspension, extended release) fenofibrate (fenofibrate 145 mg Tab) insulin glargine (Lantus Solostar Pen) rosuvastatin (Crestor 10 mg Tab) Procedures Performed Colonoscopy (07/31/2020), Colonoscopy (08/26/2016), Sling procedure of bladder neck (11/15/2015), GALE - Total abdominal hysterectomy (11/15/2015), Exploratory laparotomy, Removal of ovarian cyst. Medications What How Much When Instructions Unchanged aripiprazole (Aristada 1064 mg/ 3.9 mL intramuscular suspension, extended release) 1,064 Milligram Intramuscular Every 4 weeks Unchanged fenofibrate (fenofibrate 145 mg Tab) 1 Tablets By Mouth Every day Unchanged insulin glargine (Lantus Solostar Pen) 50 Units Subcutaneous 2 times a day Unchanged rosuvastatin (Crestor 10 mg Tab) 1 Tablets By Mouth Every day Allergies No Known Allergies No Known Medication Allergies Problems Ongoing - Any problem that you are currently receiving treatment for. Alcoholism Anal skin tag Anxiety BMI 33.0-33.9,adult Cannabis abuse Controlled type 2 diabetes mellitus with diabetic neuropathy Depression Eczema Hemorrhoids Insomnia Paranoid schizophrenia Pure hypercholesterolemia Rectal bleeding Sigmoid diverticulosis Tobacco abuse Tobacco use [facility] Pre-Certification Formon 10- 17-2022 Pre-Certification Form [id number] :127 Normal [facility] Facesheeton 08-20-2022 Facesheet [id number]: 127 Normal [facility] Physician Referralon 022 Physician Referral [id number]: 127 Normal [facility] INSULINon 07-27-2022 Insulin 30.8 uIU/mL Critically high 2.6-24.9 [facility] Comment on above: Performed By: #### I NSULIN #### [facility] [address] [address] [address] Evangelina Eng HEPATITIS PANEL, ACUTEon HBsAg Screen Negative Normal Negative [facility] Comment on above: Performed By: #### H EPACUT #### [facility] [address] [address] [address] Evangelina Eng HCV AB <0.1 Normal 0.0-0.9 [facility] Comment on above: Performed By: #### H EPACUT #### [facility] [address] [address] [address] Evangelina Eng Hep A Ab, IgM Negative Normal Negative [facility] Comment on above: Performed By: #### H EPACUT #### [facility] [address] [address] [address] Evangelina Eng Hep B Core Ab, IgM Negative Normal Negative [facility] Comment on above: Performed By: #### H EPACUT #### [facility] [address] [address] [address] Evangelina Eng Interpretation: Comment Normal [facility] Comment on above: Result Comment: Nega tive Not infected with HCV, unless recent infection is suspected or other evidence exists to indicate HCV infection. Performed By: #### H EPACUT #### [facility] [address] [address] [address] Evangelina Eng T4, T3U, FTI LABCORPon 07-26 Free Thyroxine Index 2.0 Normal 1.2-4.9 [facility] Comment on above: Performed By: #### T HYLC #### [facility] [address] [place] [address] Dr. Evangelina Eng T3 Uptake 30 % Normal 24-39 [facility] Comment on above: Performed By: #### T HYLC #### [facility] [address] [place] [address] Dr. Evangelina Eng T4 [Mass/Vol] 6.8 ug/dL Normal 4.5-12.0 [facility] Comment on above: Performed By: #### T HYLC #### [facility] [address] [place] [address] Dr. Evangelina Eng CBC AUTO DIFFon 07-25-2022 BASO # 0.0 103/ul Normal 0.0-0.1 [facility] Comment on above: Performed By: #### C BC #### [facility] [address] [place] [address] Dr. Evangelina Eng Basophils/100 WBC (Bld) 0.4 % Normal 0.2-2.0 [facility] Comment on above: Performed By: #### C BC #### [facility] [address] [place] [address] Dr. Evangelina Eng EO # 0.1 103/ul Normal 0.0-0.7 [facility] Comment on above: Performed By: #### C BC #### [facility] [address] [place] [address] Dr. Evangelina Eng Eosinophils/100 WBC (Bld) 1.5 % Normal 0.9-7.0 [facility] Comment on above: Performed By: #### C BC #### [facility] [address] [place] [address] Dr. Evangelina Eng Erythrocyte distribution width (RBC) [Ratio] 12.4 % Normal 11.0-15.0 [facility] Comment on above: Performed By: #### C BC #### [facility] [address] [place] [address] Dr. Evangelina Eng Hematocrit (Bld) [Volume fraction] 41.6 % Normal 36.0-48.0 [facility] Comment on above: Performed By: #### C BC #### [facility] [address] [place] [address] Dr. Evangelina Eng Hemoglobin (Bld) [Mass/Vol] 14.2 g/dL Normal 12.0-16.0 [facility] Comment on above: Performed By: #### C BC #### [facility] [address] [place] [address] Dr. Evangelina Eng IG # 0.02 10e3/ul Normal 0.00-0.03 [facility] Comment on above: Performed By: #### C BC #### [facility] [address] [place] [address] Dr. Evangelina Eng IG % 0.3 % Normal 0.0-0.5 [facility] Comment on above: Performed By: #### C BC #### [facility] [address] [place] [address] Dr. Evangelina Eng LYMPH # 2.7 103/ul Normal 1.2-3.8 [facility] Comment on above: Performed By: #### C BC #### [facility] [address] [place] [address] Dr. Evangelina Eng Lymphocytes/100 WBC (Bld) 36.3 % Normal 20.5-60.0 [facility] Comment on above: Performed By: #### C BC #### [facility] [address] [place] [address] Dr. Evangelina Eng MANUAL DIFF REQ NO Normal [facility] Comment on above: Performed By: #### C BC #### [facility] [address] [place] [address] Dr. Evangelina Eng MCH (RBC) [Entitic mass] 29.0 pg Normal 26.7-34.0 [facility] Comment on above: Performed By: #### C BC #### [facility] [address] [place] [address] Dr. Evangelina Eng MCHC (RBC) [Mass/Vol] 34.1 g/dL Normal 29.9-35.2 [facility] Comment on above: Performed By: #### C BC #### [facility] [address] [address] [address] Evangelina Eng MCV (RBC) [Entitic vol] 84.9 fL Normal 81.0-99.0 [facility] Comment on above: Performed By: #### C BC #### [facility] [address] [address] [address] Evangelina Eng MONO # 0.4 103/ul Normal 0.3-0.8 [facility] Comment on above: Performed By: #### C BC #### [facility] [address] [place] [address] Dr. Evangelina Eng Monocytes/100 WBC (Bld) 5.9 % Normal 1.7-12.0 [facility] Comment on above: Performed By: #### C BC #### [facility] [address] [place] [address] Dr. Evangelina Eng NEUT # 4.1 103/ul Normal 1.4-6.5 [facility] Comment on above: Performed By: #### C BC #### [facility] [address] [place] [address] Dr. Evangelina Eng Neutrophils/100 WBC (Bld) 55.6 % Normal 43.0-75.0 [facility] Comment on above: Performed By: #### C BC #### [facility] [address] [place] [address] Dr. Evangelina Eng Platelet mean volume (Bld) [Entitic vol] 9.6 fL Normal 9.5-13.5 [facility] Comment on above: Performed By: #### C BC #### [facility] [address] [place] [address] Dr. Evangelina Eng PLT 224 103/ul Normal 150-450 [facility] Comment on above: Performed By: #### C BC #### [facility] [address] [place] [address] Dr. Evangelina Eng RBC 4.90 106/ul Normal 4.20-5.40 [facility] Comment on above: Performed By: #### C BC #### [facility] [address] [place] [address] Dr. Evangelina Eng WBC 7.4 103/ul Normal 4.0-11.0 [facility] Comment on above: Performed By: #### C BC #### [facility] [address] [place] [address] Dr. Evangelina Eng GLYCOHEMOGLOBIN A1Con 2021 ADA RECOMMENDATION SEE BELOW Normal [facility] Comment on above: Result Comment: ADA RECOMMENDED LIMIT 4.0 - 6.0 ADA THERAPEUTIC TARGET < 7.0 ACTION SUGGESTED > 7.0 Performed By: #### A 1C #### [facility] [address] [place] [address] Dr. Evangelina Eng Glucose [Mass/Vol] 160 mg/dL Normal [facility] Comment on above: Performed By: #### A 1C #### [facility] [address] [place] [address] Dr. Evangelina Eng HbA1c (Bld) [Mass fraction] 7.2 % Critically high 4.5-6.2 [facility] Comment on above: Performed By: #### A 1C #### [facility] [address] [place] [address] Dr. Evangelina Eng IRONon 07-25-2022 Iron [Mass/Vol] 97.0 ug/dL Normal 50.0-170.0 [facility] Comment on above: Performed By: #### I RODGER #### [facility] [address] [place] [address] Dr. Evangelina Eng LIPID PROFILEon 07-25-2022 CHOL-HDL RATIO NORM SEE BELOW Normal [facility] Comment on above: Result Comment: 3.3 - 4.4 LOW RISK 4.4 - 7.1 AVERAGE RISK 7.1 - 11.0 MODERATE RISK >11.0 HIGH RISK Performed By: #### L IPID, CMP, TSH #### [facility] [address] [place] [address] Dr. Evangelina Eng Cholesterol [Mass/Vol] 162 mg/dL Normal <=200 [facility] Comment on above: Performed By: #### L IPID, CMP, TSH #### [facility] [address] [address] [address] Evangelina Eng Cholesterol in HDL [Mass/Vol] 40 mg/dL Normal 40-60 [facility] Comment on above: Performed By: #### L IPID, CMP, TSH #### [facility] [address] [address] [address] Evangelina Eng Cholesterol in LDL [Mass/Vol] 95.0 mg/dL Normal [facility] Comment on above: Performed By: #### L IPID, CMP, TSH #### [facility] [address] [address] [address] Evangelina Eng Cholesterol.total/Ch olesterol in HDL [Mass ratio] 4.1 {ratio} Normal [facility] Comment on above: Performed By: #### L IPID, CMP, TSH #### [facility] [address] [address] [address] Evangelina Eng HDL NORMAL > or = 60 mg/dl - LO W CARDIOVASCULAR RISK <40 mg/dl - HIGH CARDIOVASCULAR RISK Normal [facility] Comment on above: Performed By: #### L IPID, CMP, TSH #### [facility] [address] [address] [address] Evangelina Eng LDL CALC NORMAL SEE BELOW Normal [facility] Comment on above: Result Comment: <100 mg/dl OPTIMAL 100 - 129 mg/dl NEAR OR ABOVE OPTIMAL 130 - 159 mg/dl BORDERLINE HIGH 160 - 189 mg/dl HIGH >190 mg/dl VERY HIGH Performed By: #### L IPID, CMP, TSH #### [facility] [address] [address] [address] Evangelina Eng Triglyceride [Mass/Vol] 135 mg/dL Normal <=150 [facility] Comment on above: Performed By: #### L IPID, CMP, TSH #### [facility] [address] [address] [address] Evangelina Eng VLDL CALC 27.0 mg/dL Normal [facility] Comment on above: Performed By: #### L IPID, CMP, TSH #### [facility] [address] [address] [address] Evangelina Eng PROF 14(COMP METB)on 022 Albumin [Mass/Vol] 3.7 g/dL Normal 3.4-5.0 [facility] Comment on above: Performed By: #### L IPID, CMP, TSH #### [facility] [address] [address] [address] Evangelina Eng Albumin/Globulin [Mass ratio] 1.1 {ratio} Normal [facility] Comment on above: Performed By: #### L IPID, CMP, TSH #### [facility] [address] [address] [address] Evangelina Eng ALP [Catalytic activity/Vol] 77 U/L Normal 46-116 [facility] Comment on above: Performed By: #### L IPID, CMP, TSH #### [facility] [address] [place] [address] Dr. Evangelina Eng ALT [Catalytic activity/Vol] 35 U/L Normal 14-59 [facility] Comment on above: Performed By: #### L IPID, CMP, TSH #### [facility] [address] [place] [address] Dr. Evangelina Eng Anion gap [Moles/Vol] 12.4 mmol/L Normal [facility] Comment on above: Performed By: #### L IPID, CMP, TSH #### [facility] [address] [place] [address] Dr. Evangelina Eng AST [Catalytic activity/Vol] 18 U/L Normal 15-37 [facility] Comment on above: Performed By: #### L IPID, CMP, TSH #### [facility] [address] [place] [address] Dr. Evangelina Eng Bilirubin [Mass/Vol] 0.4 mg/dL Normal 0.2-1.0 [facility] Comment on above: Performed By: #### L IPID, CMP, TSH #### [facility] [address] [place] [address] Dr. Evangelina Eng Calcium [Mass/Vol] 9.1 mg/dL Normal 8.5-10.1 [facility] Comment on above: Performed By: #### L IPID, CMP, TSH #### [facility] [address] [place] [address] Dr. Evangelina Eng Chloride [Moles/Vol] 108 mmol/L Critically high 98-107 [facility] Comment on above: Performed By: #### L IPID, CMP, TSH #### [facility] [address] [place] [address] Dr. Evangelina Eng CO2 [Moles/Vol] 27.7 mmol/L Normal 21.0-32.0 [facility] Comment on above: Performed By: #### L IPID, CMP, TSH #### [facility] [address] [place] [address] Dr. Evangelina Eng Creatinine [Mass/Vol] 0.69 mg/dL Normal 0.55-1.02 [facility] Comment on above: Performed By: #### L IPID, CMP, TSH #### [facility] [address] [place] [address] Dr. Evangelina Eng EGFR-AF FIJIAN >60 Normal >=60 [facility] Comment on above: Performed By: #### L IPID, CMP, TSH #### [facility] [address] [place] [address] Dr. Evangelina Eng EGFR-NON AF FIJIAN >60 Normal >=60 [facility] Comment on above: Performed By: #### L IPID, CMP, TSH #### [facility] [address] [place] [address] Dr. Evangelina Eng Globulin (S) [Mass/Vol] 3.4 g/dL Normal [facility] Comment on above: Performed By: #### L IPID, CMP, TSH #### [facility] [address] [place] [address] Dr. Evangelina Eng Glucose [Mass/Vol] 145 mg/dL Critically high 74-106 [facility] Comment on above: Performed By: #### L IPID, CMP, TSH #### [facility] [address] [place] [address] Dr. Evangelina Eng Potassium [Moles/Vol] 4.1 mmol/L Normal 3.5-5.1 [facility] Comment on above: Performed By: #### L IPID, CMP, TSH #### [facility] [address] [address] [address] Evangelina Eng Protein [Mass/Vol] 7.1 g/dL Normal 6.4-8.2 [facility] Comment on above: Performed By: #### L IPID, CMP, TSH #### [facility] [address] [address] [address] vEangelina Eng Sodium [Moles/Vol] 144 mmol/L Normal 136-145 [facility] Comment on above: Performed By: #### L IPID, CMP, TSH #### [facility] [address] [address] [address] Evangelina Eng Urea nitrogen [Mass/Vol] 6.0 mg/dL Critically low 7.0-18.0 [facility] Comment on above: Performed By: #### L IPID, CMP, TSH #### [facility] [address] [address] [address] Evangelina Eng Urea nitrogen/Creatinine [Mass ratio] 8.7 mg/mg Normal [facility] Comment on above: Performed By: #### L IPID, CMP, TSH #### [facility] [address] [address] [address] Evangelina Eng TSHon 07-25-2022 TSH 1.584 uIU/mL Normal 0.358-3.740 [facility] Comment on above: Performed By: #### L IPID, CMP, TSH #### [facility] [address] [address] [address] Evangelina Eng DISCHARGE SUMMARYon 02-15-20 18 DISCHARGE SUMMARY [address] [id number] DISCHARGE SUMMARYPATIENT NAME: REBA DEL RIO : 1985MED REC NO: [id number] ROOM: [address] [place] [address] NO: [id number] ADMIT DATE: 03/27/2018PROVIDER: Fernando Chacon DISCH DATE: 02/14/2018HISTORY OF PRESENTING ILLNESS AND REASON FOR CURRENT ADMISSION: Thepatient is a 32-year-old female who is having delusions of persecution,delusions of reference, auditory hallucination, and suicidal thoughts, andshe is planning to kill herself, and becomes aggressive and assaultive forno reason. With this[facility]PAST PSYCHIATRIC HISTORY: History of schizoaffective disorder. She deniesany drug and alcohol use.MEDICAL AND SURGICAL HISTORY: She has diabetes type 2 and dyslipidemia.ALLERGIES: She is allergic to CIPROFLOXACIN.COURSE DURING THE HOSPITAL STAY: After getting admitted, she was startedon Abilify 20 mg p.o. daily, Aristada at 662 mg once in a month and lastdose was given on the 02/01/2018, atorvastatin 40 mg p.o. daily, apvbpalvoo47 mg daily, insulin Lantus 80 units subcutaneous two times a day, and withthis, she is stabilized and she is being discharged home.MENTAL STATUS EXAM: At the time of discharge, the patient is cooperative. She has adequate psychomotor activity. She has adequate rapport. Herspeech is within normal limits. Her mood subjectively okay, objectivelyappears to be euthymic. She has appropriate affect. Thought process iswithin normal limits. Thought content predominantly is within normallimits. She denies any hallucinations or delusions. She denies anysuicidal or homicidal thoughts or plans. She is of average intelligence. She is oriented to time, place, and person. Her memory to recent, remote,and immediate events are within normal limits. She has adequate attentionand concentration. Her insight and judgment are fair. Her abstraction isfair.DIAGNOSES:1. Schizoaffective disorder.2. Type 2 diabetes mellitus.3. Dyslipidemia.TREATMENT AND PLAN:1. The patient is discharged.2. [facility] will [facility] with [facility] and perPCP.FERNANDO MAOLNEYID: 02/14/2018 9:51:07 [id number]#: [id number] Doc#: [id number]: Normal [facility] Cult,Urine,CCon 02-12-2018 Cult,Urine,CC Specimen Description .CLEAN CATCH URINE Performed at [facility] [address] [place] [address] Special Requests NOT REPORTEDCulture NO GROWTH Performed at [facility] [address] [place] [address] Report Status FINAL 02/11/2018 Normal [facility] Comment on above: Performed By: #### C DP, CP, TSHX, LIPR ####[facility] [place] [address] #### GLYHGB, FT3, T4, LDLDIR ####[address] [address] Drug Scr, Abuse, Uron 2017 Amphetamine(s),Ur Negative Normal NEG [facility] Comment on above: Result Comment: (Pos itive cutoff 1000 ng/mL) Performed By: #### C DP, CP, TSHX, LIPR ####[address] [address] #### GLYHGB, FT3, T4, LDLDIR ####[address] [address] Barbiturate(s),Ur Negative Normal NEG [facility] Comment on above: Result Comment: (Pos itive cutoff 200 ng/mL) Performed By: #### C DP, CP, TSHX, LIPR ####[address] [address] #### GLYHGB, FT3, T4, LDLDIR ####[address] [address] Base excess Negative Normal NEG [facility] Comment on above: Result Comment: (Pos itive cutoff 300 ng/mL) Performed By: #### C DP, CP, TSHX, LIPR ####[facility] [address] [address] #### GLYHGB, FT3, T4, LDLDIR ####[address] [address] Benzodiazepine(s) Negative Normal NEG [facility] Comment on above: Result Comment: (Pos itive cutoff 200 ng/mL) Performed By: #### C DP, CP, TSHX, LIPR ####[address] [address] #### GLYHGB, FT3, T4, LDLDIR ####[address] [address] Cannabinoid(s),Ur Negative Normal NEG [facility] Comment on above: Result Comment: (Pos itive cutoff 50 ng/mL) Performed By: #### C DP, CP, TSHX, LIPR ####[address] [address] #### GLYHGB, FT3, T4, LDLDIR ####[address] [address] Interpretive Info Assay provides medic al screening only. The absence of expected drug(s) and/or Normal [facility] Comment on above: Result Comment: meta bolite(s) may indicate diluted or adulterated urine, limitations of testing or timing of collection.Testing for legal purposes should be confirmed by another method. To request confirmation of test result, please call the lab within 7 days of sample submission.Performed at [address] [address] Performed By: #### C DP, CP, TSHX, LIPR ####[address] [address] #### GLYHGB, FT3, T4, LDLDIR ####[address] [place] [address] Opiate(s), Ur Negative Normal NEG [facility] Comment on above: Result Comment: (Pos itive cutoff 300 ng/mL) Performed By: #### C DP, CP, TSHX, LIPR ####[facility] [place] [address] #### GLYHGB, FT3, T4, LDLDIR ####[address] [address] Oxycodone, Urine Negative Normal NEG [facility] Comment on above: Result Comment: (Pos itive cutoff 100 ng/mL) Performed By: #### C DP, CP, TSHX, LIPR ####[address] [address] #### GLYHGB, FT3, T4, LDLDIR ####[address] [address] Phencyclidine, Ur Negative Normal NEG [facility] Comment on above: Result Comment: (Pos itive cutoff 25 ng/mL) Performed By: #### C DP, CP, TSHX, LIPR ####[address] [address] #### GLYHGB, FT3, T4, LDLDIR ####[address] [address] Urine, methadone presence Negative Normal NEG [facility] Comment on above: Result Comment: (Pos itive cutoff 300 ng/mL) Performed By: #### C DP, CP, TSHX, LIPR ####[facility] [place] [address] #### GLYHGB, FT3, T4, LDLDIR ####[address] [address] Buprenorphrine, Ur NOT REPORTED Normal NEG [facility] Comment on above: Performed By: #### C DP, CP, TSHX, LIPR ####[address] [address] #### GLYHGB, FT3, T4, LDLDIR ####[address] [address] MDMA, Urine NOT REPORTED Normal NEG [facility] Comment on above: Performed By: #### C DP, CP, TSHX, LIPR ####[address] [address] #### GLYHGB, FT3, T4, LDLDIR ####[address] [address] Methamphetamine, Ur NOT REPORTED Normal NEG [facility] Comment on above: Performed By: #### C DP, CP, TSHX, LIPR ####[address] [address] #### GLYHGB, FT3, T4, LDLDIR ####[address] [address] Propoxyphene,Urine NOT REPORTED Normal NEG [facility] Comment on above: Performed By: #### C DP, CP, TSHX, LIPR ####[address] [address] #### GLYHGB, FT3, T4, LDLDIR ####[address] [address] Urine, tricyclic antidepressants NOT REPORTED Normal NEG [facility] Comment on above: Performed By: #### C DP, CP, TSHX, LIPR ####[address] [address] #### GLYHGB, FT3, T4, LDLDIR ####[facility] [place] [address] UA w/Reflex Cultureon 2017 Acetaminophen mass conc Negative Normal NEG [facility] Comment on above: Performed By: #### U AX, UMICAO ####[address] [address] Bilirubin (direct) Negative Normal NEG [facility] Comment on above: Performed By: #### U AX, UMICAO ####[address] [address] Hemoglobin mass conc (Bld) Negative Normal NEG [facility] Comment on above: Performed By: #### U AX, UMICAO ####[address] [address] Nitrite,Ur Negative Normal NEG [facility] Comment on above: Performed By: #### U AX, UMICAO ####[address] [address] Turbidity CLOUDY Abnormal CLEAR [facility] Comment on above: Performed By: #### U AX, UMICAO ####[address] [address] Urine, color YELLOW Normal YEL [facility] Comment on above: Performed By: #### U AX, UMICAO ####[address] [address] Urine, glucose presence 3+ Abnormal NEG [facility] Comment on above: Performed By: #### U AX, UMICAO ####[address] [address] Urine, leukocyte esterase presence Negative Normal NEG [facility] Comment on above: Result Comment: Perf ormed at [facility] [address] [facility] [place] [address] Performed By: #### U AX, UMICAO ####[facility] [place] [address] Urine, pH 6.0 [pH] Normal 5.0-8.0 [facility] Comment on above: Performed By: #### U AX, UMICAO ####[facility] [facility] [place] [address] Urine, protein presence Negative Normal NEG [facility] Comment on above: Performed By: #### U AX, UMICAO ####[facility] [facility] [place] [address] Urine, specific gravity 1.035 High 1.000-1.030 [facility] Comment on above: Performed By: #### U AX, UMICAO ####[facility] [place] [address], [place] [address] Urobilinogen,Ur Normal Normal NORM [facility] Comment on above: Performed By: #### U AX, UMICAO ####[facility] [place] [address] [place] [address] Comment NOT REPORTED Normal [facility] Comment on above: Performed By: #### U AX, UMICAO ####[address] [address] Urinalysis,Microon 8 ----- Normal [facility] Comment on above: Performed By: #### U AX, UMICAO ####[facility] [place] [address] [place] [address] Urine WBC's 10 TO 20 Normal [facility] Comment on above: Performed By: #### U AX, UMICAO ####[facility] [facility] [place] [address] Urine, amorphous sediment presence in sediment 1+ Abnormal NONE [facility] Comment on above: Result Comment: Perf ormed at [facility] [address] [place] [address] Performed By: #### U AX, UMICAO ####[facility] [place] [address] [place] [address] Urine, bacteria in sediment MODERATE Abnormal NONE [facility] Comment on above: Performed By: #### U AX, UMICAO ####[address] [place] [address] Urine, epithelial cells in sediment 10 TO 20 Normal [facility] Comment on above: Performed By: #### U AX, UMICAO ####[facility] [place] [address], [place] [address] Urine, erythrocytes 0 TO 2 Normal [facility] Comment on above: Performed By: #### U AX, UMICAO ####[address] [place] [address] Epithelial, Renal NOT REPORTED Normal 0 [facility] Comment on above: Performed By: #### U AX, UMICAO ####[address] [place] [address] Mucus Strands NOT REPORTED Normal NONE [facility] Comment on above: Performed By: #### U AX, UMICAO ####[address] [place] [address] Other Observations NOT REPORTED Normal NREQ [facility] Comment on above: Performed By: #### U AX, UMICAO ####[address] [place] [address] Trichomonas NOT REPORTED Normal NONE [facility] Comment on above: Performed By: #### U AXJIMMY ####[address] [address] Urine, casts in sediment NOT REPORTED Normal [facility] Comment on above: Performed By: #### U AXJIMMY ####[address] [address] Urine, crystals in sediment NOT REPORTED Normal NONE [facility] Comment on above: Performed By: #### U AXJIMMY ####[address] [address] Urine, yeast presence in sediment NOT REPORTED Normal NONE [facility] Comment on above: Performed By: #### U JIMMY GARCIA ####[address] [address] CBC with Diffon 02-09-2018 Abs. Basophil 0.00 k/uL Normal 0.0-0.2 [facility] Comment on above: Result Comment: Perf ormed at [facility] [address] [place] [address] Performed By: #### C DP, CP, TSHX, LIPR ####[address] [address] #### GLYHGB, FT3, T4, LDLDIR ####[address] [place] [address] Abs.Neutrophil (Seg) 5.30 k/uL Normal 1.3-9.1 [facility] Comment on above: Performed By: #### C DP, CP, TSHX, LIPR ####[address] [address] #### GLYHGB, FT3, T4, LDLDIR ####[address] [address] Basophils/100 WBC Auto (Bld) 1 % Normal 0-2 [facility] Comment on above: Performed By: #### C DP, CP, TSHX, LIPR ####[facility] [place] [address] #### GLYHGB, FT3, T4, LDLDIR ####[address] [address] Eosinophils 0.00 10*3/uL Normal 0.0-0.4 [facility] Comment on above: Performed By: #### C DP, CP, TSHX, LIPR ####[address] [address] #### GLYHGB, FT3, T4, LDLDIR ####[address] [address] Eosinophils/100 leukocytes 0 % Normal 0-4 [facility] Comment on above: Performed By: #### C DP, CP, TSHX, LIPR ####[address] [address] #### GLYHGB, FT3, T4, LDLDIR ####[address] [address] Erythrocyte distribution width Auto Ratio (RBC) 13.0 % Normal 11.5-14.9 [facility] Comment on above: Performed By: #### C DP, CP, TSHX, LIPR ####[address] [address] #### GLYHGB, FT3, T4, LDLDIR ####[address] [address] Erythrocytes (RBC) 5.36 10*6/uL High 4.0-5.2 [facility] Comment on above: Performed By: #### C DP, CP, TSHX, LIPR ####[facility] [place] [address] #### GLYHGB, FT3, T4, LDLDIR ####[address] [address] Hematocrit (HCT) 46.4 % High 36-46 [facility] Comment on above: Performed By: #### C DP, CP, TSHX, LIPR ####[address] [address] #### GLYHGB, FT3, T4, LDLDIR ####[address] [address] Hemoglobin mass conc (Bld) 16.0 g/dL Normal 12.0-16.0 [facility] Comment on above: Performed By: #### C DP, CP, TSHX, LIPR ####[address] [address] #### GLYHGB, FT3, T4, LDLDIR ####[address] [address] Lymphocytes 3.40 10*3/uL Normal 1.0-4.8 [facility] Comment on above: Performed By: #### C DP, CP, TSHX, LIPR ####[address] [address] #### GLYHGB, FT3, T4, LDLDIR ####[address] [address] Lymphocytes/100 leukocytes 36 % Normal 24-44 [facility] Comment on above: Performed By: #### C DP, CP, TSHX, LIPR ####[address] [address] #### GLYHGB, FT3, T4, LDLDIR ####[address] [address] MCH 29.9 pg Normal 26-34 [facility] Comment on above: Performed By: #### C DP, CP, TSHX, LIPR ####[address] [address] #### GLYHGB, FT3, T4, LDLDIR ####[address] [address] MCHC mass conc (RBC) 34.5 g/dL Normal 31-37 [facility] Comment on above: Performed By: #### C DP, CP, TSHX, LIPR ####[address] [address] #### GLYHGB, FT3, T4, LDLDIR ####[address] [address] MCV 86.5 fL Normal 80-100 [facility] Comment on above: Performed By: #### C DP, CP, TSHX, LIPR ####[address] [address] #### GLYHGB, FT3, T4, LDLDIR ####[address] [address] Monocytes 0.60 10*3/uL Normal 0.1-1.3 [facility] Comment on above: Performed By: #### C DP, CP, TSHX, LIPR ####[address] [address] #### GLYHGB, FT3, T4, LDLDIR ####[address] [address] Monocytes/100 leukocytes 6 % Normal 1-7 [facility] Comment on above: Performed By: #### C DP, CP, TSHX, LIPR ####[address] [address] #### GLYHGB, FT3, T4, LDLDIR ####[address] [address] Neutrophil (Seg) 57 % Normal 36-66 [facility] Comment on above: Performed By: #### C DP, CP, TSHX, LIPR ####[address] [address] #### GLYHGB, FT3, T4, LDLDIR ####[address] [address] Platelet mean volume (PMV) 8.2 fL Normal 6.0-12.0 [facility] Comment on above: Performed By: #### C DP, CP, TSHX, LIPR ####[address] [address] #### GLYHGB, FT3, T4, LDLDIR ####[address] [address] Platelets 216 10*3/uL Normal 150-450 [facility] Comment on above: Performed By: #### C DP, CP, TSHX, LIPR ####[address] [address] #### GLYHGB, FT3, T4, LDLDIR ####[address] [address] WBC (Leukocytes) 9.3 10*3/uL Normal 3.5-11.0 [facility] Comment on above: Performed By: #### C DP, CP, TSHX, LIPR ####[address] [address] #### GLYHGB, FT3, T4, LDLDIR ####[address] [address] Auto Diff Performed NOT REPORTED Normal [facility] Comment on above: Performed By: #### C DP, CP, TSHX, LIPR ####[address] [address] #### GLYHGB, FT3, T4, LDLDIR ####[address] [address] Erythrocyte morphology NOT REPORTED Normal [facility] Comment on above: Performed By: #### C DP, CP, TSHX, LIPR ####[address] [address] #### GLYHGB, FT3, T4, LDLDIR ####[address] [address] Erythrocytes (RBC) NOT REPORTED Normal [facility] Comment on above: Performed By: #### C DP, CP, TSHX, LIPR ####[address] [address] #### GLYHGB, FT3, T4, LDLDIR ####[address] [address] Granulocytes/100 WBC (Bld) NOT REPORTED Normal 0.00-0.30 [facility] Comment on above: Performed By: #### C DP, CP, TSHX, LIPR ####[address] [place] [address] #### GLYHGB, FT3, T4, LDLDIR ####[address] [place] [address] Immature granulocytes #/vol (Bld) NOT REPORTED Normal 0 [facility] Comment on above: Performed By: #### C DP, CP, TSHX, LIPR ####[address] [address] #### GLYHGB, FT3, T4, LDLDIR ####[address] [place] [address] Platelets NOT REPORTED Normal [facility] Comment on above: Performed By: #### C DP, CP, TSHX, LIPR ####[address] [address] #### GLYHGB, FT3, T4, LDLDIR ####[address] [place] [address] WBC Morphology NOT REPORTED Normal [facility] Comment on above: Performed By: #### C DP, CP, TSHX, LIPR ####[address] [address] #### GLYHGB, FT3, T4, LDLDIR ####[address] [place] [address] Comp Metabolic Profon 2017 (cont.) Normal [facility] Comment on above: Result Comment: Aver age GFR for 30-39 years old: 107 mL/min/1.73sq mChronic Kidney Disease: <60 mL/min/1.73sq mKidney failure: <15 mL/min/1.73sq meGFR calculated using average adult body mass. Additional eGFR calculator available at:http://www.ComActivity.com/multiple_crcl_2012.htmPerformed at [facility] [address] [place] [address] Performed By: #### C DP, CP, TSHX, LIPR ####[facility] [place] [address] #### GLYHGB, FT3, T4, LDLDIR ####[address] [address] Alanine aminotransferase (ALT) 18 U/L Normal 5-33 [facility] Comment on above: Performed By: #### C DP, CP, TSHX, LIPR ####[facility] [place] [address] #### GLYHGB, FT3, T4, LDLDIR ####[address] [address] Albumin 3.8 g/dL Normal 3.5-5.2 [facility] Comment on above: Performed By: #### C DP, CP, TSHX, LIPR ####[facility] [place] [address] #### GLYHGB, FT3, T4, LDLDIR ####[address] [address] Alkaline Phos 121 U/L High 35-104 [facility] Comment on above: Performed By: #### C DP, CP, TSHX, LIPR ####[facility] [place] [address] #### GLYHGB, FT3, T4, LDLDIR ####[address] [address] Anion gap 10 mmol/L Normal 9-17 [facility] Comment on above: Performed By: #### C DP, CP, TSHX, LIPR ####[address] [address] #### GLYHGB, FT3, T4, LDLDIR ####[address] [address] Aspartate aminotransferase (AST) 14 U/L Normal <32 [facility] Comment on above: Performed By: #### C DP, CP, TSHX, LIPR ####[address] [address] #### GLYHGB, FT3, T4, LDLDIR ####[address] [address] Bilirubin Ql (U) 0.22 mg/dL Low 0.3-1.2 [facility] Comment on above: Performed By: #### C DP, CP, TSHX, LIPR ####[address] [address] #### GLYHGB, FT3, T4, LDLDIR ####[address] [address] Calcium 8.9 mg/dL Normal 8.6-10.4 [facility] Comment on above: Performed By: #### C DP, CP, TSHX, LIPR ####[address] [address] #### GLYHGB, FT3, T4, LDLDIR ####[address] [address] Chloride 100 mmol/L Normal 98-107 [facility] Comment on above: Performed By: #### C DP, CP, TSHX, LIPR ####[address] [address] #### GLYHGB, FT3, T4, LDLDIR ####[address] [address] CO2 27 mmol/L Normal 20-31 [facility] Comment on above: Performed By: #### C DP, CP, TSHX, LIPR ####[facility] [place] [address] #### GLYHGB, FT3, T4, LDLDIR ####[address] [address] Creatinine 0.54 mg/dL Normal 0.50-0.90 [facility] Comment on above: Performed By: #### C DP, CP, TSHX, LIPR ####[address] [address] #### GLYHGB, FT3, T4, LDLDIR ####[address] [address] eGFR (non-black) mL/min/{1.73_m2} Normal >60 [facility] Comment on above: Performed By: #### C DP, CP, TSHX, LIPR ####[address] [address] #### GLYHGB, FT3, T4, LDLDIR ####[address] [address] Glucose mass conc 368 mg/dL High 70-99 [facility] Comment on above: Performed By: #### C DP, CP, TSHX, LIPR ####[facility] [place] [address] #### GLYHGB, FT3, T4, LDLDIR ####[address] [address] Potassium molar conc 4.3 mmol/L Normal 3.7-5.3 [facility] Comment on above: Performed By: #### C DP, CP, TSHX, LIPR ####[facility] [place] [address] #### GLYHGB, FT3, T4, LDLDIR ####[address] [address] Protein 6.8 g/dL Normal 6.4-8.3 [facility] Comment on above: Performed By: #### C DP, CP, TSHX, LIPR ####[address] [address] #### GLYHGB, FT3, T4, LDLDIR ####[address] [address] Sodium 137 mmol/L Normal 135-144 [facility] Comment on above: Performed By: #### C DP, CP, TSHX, LIPR ####[address] [address] #### GLYHGB, FT3, T4, LDLDIR ####[address] [address] Urea nitrogen 11 mg/dL Normal 6-20 [facility] Comment on above: Performed By: #### C DP, CP, TSHX, LIPR ####[address] [address] #### GLYHGB, FT3, T4, LDLDIR ####[address] [address] Albumin/Globulin Ratio NOT REPORTED Normal 1.0-2.5 [facility] Comment on above: Performed By: #### C DP, CP, TSHX, LIPR ####[facility] [place] [address] #### GLYHGB, FT3, T4, LDLDIR ####[address] [address] BUN/CRE Ratio NOT REPORTED Normal - [facility] Comment on above: Performed By: #### C DP, CP, TSHX, LIPR ####[address] [address] #### GLYHGB, FT3, T4, LDLDIR ####[address] [address] Staging: NOT REPORTED Normal [facility] Comment on above: Performed By: #### C DP, CP, TSHX, LIPR ####[address] [address] #### GLYHGB, FT3, T4, LDLDIR ####[address] [address] Hemoglobin A1Con 02-09-2018 Glucose mass conc 229 mg/dL Normal [facility] Comment on above: Result Comment: The ADA and AACC recommend providing the estimated average glucose result to permit better patient understanding of their HBA1c result.Performed at [address] [address] Performed By: #### C DP, CP, TSHX, LIPR ####[address] [address] #### GLYHGB, FT3, T4, LDLDIR ####[address] [address] Hemoglobin A1c/Hemoglobin.total mass fraction (Bld) 9.6 % High 4.0-6.0 [facility] Comment on above: Performed By: #### C DP, CP, TSHX, LIPR ####[address] [address] #### GLYHGB, FT3, T4, LDLDIR ####[address] [address] LDL Chol, Directon 8 LDL Chol, Direct 150 mg/dL High <100 [facility] Comment on above: Result Comment: Perf ormed at [place] [place] [address] Performed By: #### C DP, CP, TSHX, LIPR ####[address] [address] #### GLYHGB, FT3, T4, LDLDIR ####[address] [address] Lipid Profileon 2018 LDL Cholesterol Normal 0-130 [facility] Comment on above: Result Comment: Calc ulation not valid for Triglyceride value greater than 400 mg/dL.Direct LDL reflexedLDL Guidelines: <100 Desirable 100-129 Near to/above Desirable 130-159 Borderline >159 UndesirableDirect (measured) LDL and calculated LDL are not interchangeable tests. Performed By: #### C DP, CP, TSHX, LIPR ####[address] [address] #### GLYHGB, FT3, T4, LDLDIR ####[address] [address] Cholesterol 258 mg/dL High <200 [facility] Comment on above: Result Comment: Chol esterol Guidelines: <200 Desirable 200-240 Borderline >240 Undesirable Performed By: #### C DP, CP, TSHX, LIPR ####[address] [address] #### GLYHGB, FT3, T4, LDLDIR ####[facility] [place] [address] Cholesterol to HDL Ratio 9.9 {ratio} High <5 [facility] Comment on above: Performed By: #### C DP, CP, TSHX, LIPR ####[facility] [place] [address] #### GLYHGB, FT3, T4, LDLDIR ####[facility] [place] [address] HDL Cholesterol 26 mg/dL Low >40 [facility] Comment on above: Result Comment: HDL Guidelines: <40 Undesirable 40-59 Borderline >59 Desirable Performed By: #### C DP, CP, TSHX, LIPR ####[address] [address] #### GLYHGB, FT3, T4, LDLDIR ####[address] [address] Triglyceride 761 mg/dL High <150 [facility] Comment on above: Result Comment: Trig lyceride Guidelines: <150 Desirable 150- 199 Borderline 200-499 High >499 Very high Based on AHA Guidelines for fasting triglyceride, August 2012.Performed at [facility] [address] [place] [address] Performed By: #### C DP, CP, TSHX, LIPR ####[facility] [place] [address] #### GLYHGB, FT3, T4, LDLDIR ####[facility] [place] [address] Cholesterol in VLDL mass conc NOT REPORTED Normal 1-30 [facility] Comment on above: Performed By: #### C DP, CP, TSHX, LIPR ####[facility] [place] [address] #### GLYHGB, FT3, T4, LDLDIR ####[address] [address] T3, Freeon 02-09-2018 Triiodothyronine (T3) free 3.12 pg/mL Normal 2.02-4.43 [facility] Comment on above: Result Comment: Perf ormed at [address] [address] Performed By: #### C DP, CP, TSHX, LIPR ####[address] [address] #### GLYHGB, FT3, T4, LDLDIR ####[address] [address] TSH w/reflex to FT4on 2017 Thyroid stimulating hormone (TSH) 1.28 m[IU]/L Normal 0.30-5.00 [facility] Comment on above: Result Comment: Perf ormed at [address] [address] Performed By: #### C DP, CP, TSHX, LIPR ####[address] [address] #### GLYHGB, FT3, T4, LDLDIR ####[address] [address] Thyroxine T4on 02-09-2018 Thyroxine (T4) 6.1 ug/dL Normal 4.5-12.0 [facility] Comment on above: Result Comment: Perf ormed at [address] [address] Performed By: #### C DP, CP, TSHX, LIPR ####[address] [address] #### GLYHGB, FT3, T4, LDLDIR ####[facility] [place] [address] Vital Signs Date Time Vital Sign Value Performing Clinician Justin mcknight 08-18-2022 13:27-0400 Blood Pressure Location Justin NILL [facility] 08-18-2022 13:27-0400 Diastolic blood pressure 80 mm[Hg] Justin NILL [facility] 08-18-2022 13:27-0400 Heart rate 76 /min Justin NILL [facility] 08-18-2022 13:27-0400 Respiratory rate 16 /min Justin NILL [facility] 08-18-2022 13:27-0400 Systolic blood pressure 120 mm[Hg] Justin NILL [facility] Encounters Encounter Date Encounter Type Care Provider Facility Start: 04-06-2024 ambulatory Norman Dye acility:[facility] Start: 03-24-2023 End: 03-24-[address] MARLIN SANFORD . Facility: Start: 10-20-2022 End: 10-20-[address] HARPER ROSE . Facility: Start: 09-08-2022 End: 09-09-2022 ambulatory Justin R NILL Facility:[facility] Start: 09-08-2022 End: 09-08-2022 Patient encounter procedure Justin R NILL [facility] Start: 08-18-2022 End: 08-19-2022 ambulatory Justin R NILL Facility:[facility] Start: 08-18-2022 End: 08-18-2022 Patient encounter procedure Justin R NILL [facility] Start: 07-25-2022 End: 07-26-[address] HARPER ROSE . Facility:[facility] Start: 02-08-2018 End: 02-14-2018 Evaluation and management of inpatient FERNANDO V INDURTI [facility] Procedures Date Procedure Procedure Detail Performing Clinician Start: 07-31-2020 Jaison ONEILL Start: 02-14-2018 POCT GLUCOSE FERNANDO INDURTI Start: 02-14-2018 DISCHARGE PATIENT SREEK ANTH INDURTI Start: 02-14-2018 POCT GLUCOSE FERNANDO INDURTI Start: 02-14-2018 POC GLUCOSE FINGERSTICK FERNANDO INDURTI Start: 02-14-2018 POCT GLUCOSE FERNANDO INDURTI Start: 02-13-2018 POC GLUCOSE FINGERSTICK FERNANDO INDURTI Start: 02-13-2018 POCT GLUCOSE FERNANDO INDURTI Start: 02-13-2018 POC GLUCOSE FINGERSTICK FERNANDO INDURTI Start: 02-13-2018 POCT GLUCOSE FERNANDO INDURTI Start: 02-13-2018 POC GLUCOSE FINGERSTICK FERNANDO INDURTI Start: 02-13-2018 POC GLUCOSE FINGERSTICK FERNANDO INDURTI Start: 02-13-2018 POCT GLUCOSE FERNANDO INDURTI Start: 02-13-2018 POCT GLUCOSE FERNANDO INDURTI Start: 02-12-2018 POC GLUCOSE FINGERSTICK FERNANDO INDURTI Start: 02-12-2018 POCT GLUCOSE FERNANDO INDURTI Start: 02-12-2018 POC GLUCOSE FINGERSTICK FERNANDO INDURTI Start: 02-12-2018 POC GLUCOSE FINGERSTICK FERNANDO INDURTI Start: 02-12-2018 POCT GLUCOSE FERNANDO INDURTI Start: 02-12-2018 POC GLUCOSE FINGERSTICK FERNANDO INDURTI Start: 02-12-2018 POCT GLUCOSE FERNANDO INDURTI Start: 02-12-2018 POCT GLUCOSE FERNANDO INDURTI Start: 02-11-2018 POC GLUCOSE FINGERSTICK FERNANDO INDURTI Start: 02-11-2018 POCT GLUCOSE FERNANDO INDURTI Start: 02-11-2018 POC GLUCOSE FINGERSTICK FERNANDO INDURTI Start: 02-11-2018 POCT GLUCOSE FERNANDO INDURTI Start: 02-11-2018 POC GLUCOSE FINGERSTICK FERNANDO INDURTI Start: 02-11-2018 POCT GLUCOSE FERNANDO INDURTI Start: 02-11-2018 POC GLUCOSE FINGERSTICK FERNANDO INDURTI Start: 02-11-2018 POCT GLUCOSE FERNANDO INDURTI Start: 02-10-2018 POC GLUCOSE FINGERSTICK FERNANDO INDURTI Start: 02-10-2018 POCT GLUCOSE FERNANDO INDURTI Start: 02-10-2018 POC GLUCOSE FINGERSTICK FERNANDO INDURTI Start: 02-10-2018 URINE CULTURE CLEAN CATCH FERNANDO INDURTI Start: 02-10-2018 Microscopic urinalysis FERNANDO INDURTI Start: 02-10-2018 URINE DRUG SCREEN SREEK ANTH INDURTI Start: 02-10-2018 URINE RT REFLEX TO CULTURE FERNANDO INDURTI Start: 02-10-2018 POCT GLUCOSE FERNANDO INDURTI Start: 02-10-2018 POC GLUCOSE FINGERSTICK FERNANDO INDURTI Start: 02-10-2018 POCT GLUCOSE FERNANDO INDURTI Start: 02-10-2018 POC GLUCOSE FINGERSTICK FERNANDO INDURTI Start: 02-10-2018 POCT GLUCOSE FERNANDO INDURTI Start: 02-09-2018 POC GLUCOSE FINGERSTICK FERNANDO INDURTI Start: 02-09-2018 POCT GLUCOSE FERNANDO INDURTI Start: 02-09-2018 POC GLUCOSE FINGERSTICK FERNANDO INDURTI Start: 02-09-2018 POC GLUCOSE FINGERSTICK FERNANDO INDURTI Start: 02-09-2018 POCT GLUCOSE FERNANDO INDURTI Start: 02-09-2018 POC GLUCOSE FINGERSTICK FERNANDO INDURTI Start: 02-09-2018 POCT GLUCOSE FERNANDO INDURTI Start: 02-09-2018 CBC WITH AUTO DIFFERENTIAL FERNANDO INDURTI Start: 02-09-2018 COMPREHENSIVE METABO LIC PANEL FERNANDO INDURTI Start: 02-09-2018 HEMOGLOBIN A1C SREEKANT H INDURTI Start: 02-09-2018 LDL CHOLESTEROL, DIRECT FERNANDO INDURTI Start: 02-09-2018 Lipid panel FERNANDO INDURTI Start: 02-09-2018 T3, FREE FERNANDO INDURTI Start: 02-09-2018 T4 FERNANDO INDURTI Start: 02-09-2018 TSH WITH REFLEX SREEKAN TH INDURTI Start: 02-09-2018 POCT GLUCOSE FERNANDO INDURTI Start: 02-09-2018 VITAL SIGNS FERNANDO INDURTI Start: 02-09-2018 IP CONSULT TO SEWER MAINTENANCE SUPERVISOR AL MEDICINE FERNANDO INDURTI Start: 02-09-2018 POC GLUCOSE FINGERSTICK FERNANDO INDURTI Start: 02-09-2018 MISCELLANEOUS NURSIN G CARE ORDER (SPECIFY) FERNANDO INDURTI Start: 02-08-2018 DIET GENERAL FERNANDO INDURTI Start: 02-08-2018 FULL CODE FERNANDO INDURTI Start: 02-08-2018 IP CONSULT TO HISTOR Y AND PHYSICAL FERNANDO INDURTI Start: 02-08-2018 OFF UNIT PRIVILEGES SRE EKANTH INDURTI Start: 02-08-2018 UNRESTRICTED VISITAT ION STATUS FERNANDO INDURTI Start: 02-08-2018 PATIENT STATUS (DIRECT) FERNANDO INDURTI Start: 08-26-2016 Colonoscopy Justin BRAVO LL Start: 11-15-2015 Repair of stress incontinence by suprapubic sling Justin MIGUELL Start: 11-15-2015 Total abdominal hysterectomy Justin ROTH Exploratory laparotomy Jesus ladan LAMONTL Removal of ovarian cyst Dony ael NILL Payers Date Payer Category Payer Self-pay 1984 Unknown [id number] [id number] [id number] 1984 Unknown [id number] 2.16.8 [id number] 1984 Unknown [id number] 2.16.84 [id number] 1984 Unknown [id number] 2.16.84 [id number] 1984 Unknown [id number] 2.16.84 [id number] 1959 Unknown [id number] 1959 Unknown [id number] Unknown [id number] 2.16.8 [id number] Social History Date Type Detail Facility Start: 08-18-2022 Tobacco smoking status Heavy t obacco smoker (finding) [facility] Tobacco smoking status Never [facility] Sex Assigned At Female [facility] Functional Status Date Assessment Result Facility 08-18-2022 Functional Status N/A [facility] 08-23-2022 Note Date & Type Note Facility 08-23-2022 Note Chief Complaint consultation for hemorrhoid HPI Staff 37 year old female presents on consultation from Dr. Rose for painful, bleeding hemorrhoid. Reports several month history of external nodule near anus that waxes and wanes in size. Intermittent pain/tenderness and bleeding. Prescribed Hydrocortisone-Pramoxine cream BID, patient did not pick this up from pharmacy. She has not tried any OTC medications. Last colonoscopy completed 07/2020 with rectal inflammation. History of Present Illness 37 yo female with h/o DMII, hypercholesterolemia, schizophrenia, referred for intermittent perianal irritation and bleeding with wiping; no change in bms or blood in stools, colonoscopy 2 years ago with small area of rectal inflammation; no hard stools, or decreased caliber of stools; no N/V or abd pains; no asa or NSAID use; no tobacco use. Review of Systems PHQ Score Initial Depression Screen Score: 0 ROS - Provider Constitutional: no fever, no sweats, no weight loss. Eyes: no glasses, no blurred vision, no visual loss. ENMT: no dentures, no hoarseness, no swallowing difficulties, no hearing loss, no ear infection(s), no nose bleeds. Cardiovascular: normal blood pressure, no chest pain, regular heartbeat, no heart murmur. Respiratory: no shortness of breath, no cough, no asthma, no wheezing. Gastrointestinal: no nausea, no vomiting, no diarrhea, no constipation, no blood in stool, no change in bowel habits, no abdominal pain, no hepatitis. Genitourinary: no kidney stones, no urine infection, no dysuria. Musculoskeletal: no pain, no weakness. Skin: no changing moles, no rash, no skin lumps. Neurologic: no seizures, no epilepsy, no headache. Psychiatric: no emotional or psychiatric problem. Heme/Lymph: no bleeding problems, no anemia, no blood clots, no transfusions. Allergy/Immunologic: no swollen lymph nodes/glands, no IV drug abuse. Other: Additional ROS info: Except as noted in the above Review of Systems and in the History of Present Illness, all other systems have been reviewed and are negative or noncontributory. Physical Exam Vitals & Measurements HR: 76(Peripheral) RR: 16 BP: 120/80 HT: 67 in HT: 170.1 cm WT: 97.3 kg WT: 214.06 lb BMI: 33.63 HEENT: normal conjunctiva, sclera clear, no scleral icterus, EOM intact, PERRLA, oral mucosa moist without lesions. Neck: trachea midline, no mass, symmetric, no thyromegaly or nodules, no adenopathy Respiratory: lungs CTA, respirations non labored. Cardiovascular: regular rate and rhythm, no murmur, no pedal edema or varicosities. Lymphatic: no cervical adenopathy, rectal: no masses or blood, no fissures, no external hemorrhoids; 1 x .5 cm skin tag, no ulceration or bleeding Musculoskeletal: normal gait, digits and nails without infection, nodes, cyanosis, clubbing. Skin: no rashes, no lesions, no ulcers, no subcutaneous nodules, induration. Psychiatric/Neuro: oriented to time, place, person, judgement normal, affect appropriate for age, insight intact, no focal deficits. Tests: review of old records completed, Discussed surgical options, risks, and possible complications with patient. Assessment/Plan 1. Anal skin tag (K64.4: Residual hemorrhoidal skin tags) plan excisional biopsy under local anesthesia in the office, informed consent obtained. 2. Tobacco use (Z72.0: Tobacco use) We strongly recommend to quit tobacco use. Cigarette smoking harms nearly every organ of the body, causes many diseases, and reduces the health of smokers in general. Quitting smoking lowers your risk for smoking-related diseases and can add years to your life. We encourage you to visit www.smokefree.gov access to helpful resources including free telephone support. If you decide on prescription treatment to help you quit, your family doctor would be happy to provide these. 3. BMI 33.0-33.9,adult (Z68.33: Body mass index [BMI] 33.0-33.9, adult) recommend diet and exercise. Follow-up No qualifying data available Problem List/Past Medical History Ongoing Alcoholism Anal skin tag Anxiety BMI 33.0-33.9,adult Cannabis abuse Controlled type 2 diabetes mellitus with diabetic neuropathy Depression Eczema Hemorrhoids Insomnia Paranoid schizophrenia Pure hypercholesterolemia Rectal bleeding Sigmoid diverticulosis Tobacco abuse Tobacco use Historical No qualifying data Procedure/Surgical History Colonoscopy (07/31/2020), Colonoscopy (08/26/2016), Sling procedure of bladder neck (11/15/2015), [facility] - Total abdominal hysterectomy (11/15/2015), Exploratory laparotomy, Removal of ovarian cyst. Medications Aristada 1064 mg/3.9 mL intramuscular suspension, extended release, 1064 mg, IntraMuscular, q4wk Crestor 10 mg Tab, 10 mg= 1 tab(s), Oral, Daily fenofibrate 145 mg Tab, 145 mg= 1 tab(s), Oral, Daily Lantus Solostar Pen, 50 unit(s), SubCutaneous, BID Allergies No Known Allergies No Known Medication Allergies Social History Alcohol Current, Wine, 1-2 time (more content not included)... [facility] Comment on above: Result Comment: Elec tronically Signed By: Justin ROTH MD\.br\Date and Time Signed: 08/23/22 17:58 EDT Evaluation + Plan note Note Date & Type Note Facility Evaluation + Plan note Future Appointments Appointment Date:09/09/2022 02:00:00 PM Scheduled Provider:Justin ROTH MD Location:[facility] Appointment Type: Procedure 30 [facility] Hospital course Narrative Note Date & Type Note Facility Hospital course Narrative No data available for this section [facility] Discharge instructions Note Date & Type Note Facility Hospital Discharge instructions No data available for this section [facility] Progress note Note Date & Type Note Facility Progress note No data available for this section [facility] Summary Purpose Family History No Family History Records FoundNo Family History Records FoundNo Family History Records FoundNo Family History Records Found Advance Directives No Advanced Directives Records FoundNo Advanced Directives Records FoundNo Advanced Directives Records FoundNo Advanced Directives Records Found Additional Source Comments INFORMATION SOURCE (unrecogn ized section and content) DATE CREATED AUTHOR 05/05/2018 [facility] DATE CREATED AUTHOR AUTHOR'S ORGANIZ ATION 09/28/2022 [facility] DATE CREATED AUTHOR AUTHOR'S ORGANIZ ATION 03/25/2023 [facility] DATE CREATED AUTHOR AUTHOR'S ORGANIZ ATION 04/13/2024 [facility] Patient Care team informatio n (unrecognized section and content) Personnel Name: Harper Rose MD Address: Address: [address] [place] [address] Personnel Name: Harper Rose MD Address: Address: [address] [place] [address] FOR RECORDS PERTAINING TO PATIENTS WHO ARE OR HAVE BEEN ENROLLED IN A CHEMICAL DEPENDENCY/SUBSTANCEABUSE PROGRAM, SOME INFORMATION MAY BE OMITTED. This clinical summary was aggregated from multiple sources. Caution should be exercised in using it in the provision of clinical care. This summary normalizes information from multiple sources, and as a consequence, information in this document may materially change the coding, format and clinical context of patient data. In addition, data may be omitted in some cases. CLINICAL DECISIONS SHOULD BE BASED ON THE PRIMARY CLINICAL RECORDS. [facility]. provides no warranty or guarantee of the accuracy or completeness of information in this document.
== END 2024-05-09 14:50 | disposition home or self-care (01) ==
LOC: VC 14:49
PROVIDERS: PCP Family Medicine; Visit Provider Family Medicine
DX: M79.605 Pain in left leg (principal); R09.89 Other specified symptoms and signs involving the circulatory and respiratory systems
CPT/HCPCS: 93922

== ENCOUNTER 2024-12-05 12:02 | Emergency (ER) | payer OTHER, SELFPAY ==
[2024-12-05 12:16] VITALS: BP 144/94; PULSE 70; TEMP 36.6; O2SAT 99; BMI 29.4
[2024-12-05 13:04] LABS: Basophils Percent Auto 0.5 % (0.2-2.0); Eosinophils Absolute Auto 0.1 10^3/uL (0.0-0.7); Eosinophils Percent Auto 1.5 % (0.9-7.0); Hematocrit 42.8 % (36.0-48.0); Immature Granulocytes Abs Auto 0.01 10^3/uL (0.00-0.03); Immature Granulocytes Pct Auto 0.1 % (0.0-0.5); Lymphocytes Absolute Auto 2.9 10^3/uL (1.2-3.8); Lymphocytes Percent Auto 38.4 % (20.5-60.0); Mean Corpuscular Hemoglobin 29.9 pg (26.7-34.0); Mean Corpuscular Volume 85.4 fL (81.0-99.0); Mean Platelet Volume 9.3 fL (9.5-13.5); Monocytes Absolute Auto 0.4 10^3/uL (0.3-0.8); Monocytes Percent Auto 5.1 % (1.7-12.0); Neutrophils Absolute Auto 4.1 10^3/uL (1.4-6.5); Neutrophils Percent Auto 54.4 % (43.0-75.0); Platelet Count 210 10^3/uL (150-450); Red Blood Count 5.01 10^6/uL (4.20-5.40); White Blood Count 7.5 10^3/uL (4.0-11.0)
[2024-12-05 13:08] LABS: Bilirubin Urine NEGATIVE (NEGATIVE); Blood Urine NEGATIVE (NEGATIVE); Clarity Urine CLEAR (CLEAR); Color Urine LT. YELLOW (YELLOW); Glucose Urine UA NEGATIVE (NEGATIVE); Ketones Urine NEGATIVE (NEGATIVE); Leukocyte Esterase Urine NEGATIVE (NEGATIVE); Nitrite Urine NEGATIVE (NEGATIVE); Protein Urine NEGATIVE (NEG/TRACE); Specific Gravity Urine <=1.005 (1.005-1.025); Urobilinogen Urine 0.2 EU/dL (0.2-1.0); pH Urine 6.5 (5.0-9.0)
[2024-12-05 13:09] LABS: Urine Microscopic Indicated NO
[2024-12-05 13:27] LABS: Alanine Aminotransferase 43 U/L (14-59); Albumin Globulin Ratio 1.1; Albumin Level 3.6 g/dL (3.4-5.0); Alkaline Phosphatase 118 U/L (46-116); Anion Gap 14.8; Aspartate Amino Transferase 16 U/L (15-37); Bilirubin Total 0.4 mg/dL (0.2-1.0); Calcium 8.8 mg/dL (8.5-10.1); Carbon Dioxide 28.3 mmol/L (21.0-32.0); Chloride 105 mmol/L (98-107); Estimated GFR (African America >60 (>=60 mL/min/1.73m^2); Estimated GFR (Non-African Ame >60 (>=60 mL/min/1.73m^2); Globulin 3.4 g/dL; Glucose 133 mg/dL (74-106); Potassium 4.1 mmol/L (3.5-5.1); Sodium 144 mmol/L (136-145)
[2024-12-05 13:29] LABS: Lactate/Lactic Acid 1.2 mmol/L (0.4-2.0)
--- NOTE | 2024-12-05 13:34 | ED_ITS ---
HPI - Abdominal Pain General Chief Complaint: Abdominal Pain Stated Complaint: abdominal pain Time Seen by Provider: 12/05/24 12:22 Source: patient Mode of arrival: walk-in Limitations: no limitations History of Present Illness HPI narrative: The patient is a 39-year-old female coming to the ER with a lower abdominal pain that comes only when she is coughing or straining, patient mentioned that she have no nausea no vomiting no change in bowel movement, the patient denies being sick right now she has been having this symptoms for the last week, the patient does not come in certain movement or on palpation but it is there only whenever she coughs or strains ,patient never noticed any bulging, or hernia She have a history of hysterectomy Related Data Home Medications ?Medication ?Instructions ?Recorded ?Confirmed aripiprazole lauroxil 1,064 mg/3.9 1,064 mg IM .every 2 months 05/12/23 12/05/24 mL suspension,ext.rel IM syringe (Aristada) bupropion HCl 75 mg tablet 75 mg PO DAILY 12/05/24 12/05/24 dextromethorphan IR 45 PO 12/05/24 mg-bupropion ER 105 mg biphasic tablet (Auvelity) insulin glargine 100 unit/mL 25 unit subcut BID 12/05/24 12/05/24 subcutaneous solution (Lantus U-100 Insulin) olanzapine 2.5 mg tablet 2.5 mg PO BID PRN anxiety 12/05/24 12/05/24 pantoprazole 40 mg tablet,delayed 40 mg PO DAILY 12/05/24 12/05/24 release pregabalin 25 mg capsule mg 12/05/24 pregabalin 50 mg capsule 50 mg PO DAILY PRN restles legs 12/05/24 12/05/24 rosuvastatin 10 mg tablet 10 mg PO DAILY 12/05/24 12/05/24 semaglutide 2 mg/dose (8 mg/3 mL) 2 mg subcut .weekly 12/05/24 12/05/24 subcutaneous pen injector (Ozempic) Allergies Allergy/AdvReac Type Severity Reaction Status Date / Time No Known Drug Allergies Allergy Verified 12/05/24 12:12 Review of Systems ROS Status of ROS 10 or more systems reviewed and unremark able except as noted in history and below PFSH PFSH Social History Little interest or pleasure in doing things: not at all Feeling down, depressed, or hopeless: not at all Exam Narrative Exam Narrative: Nurses notes and vital signs reviewed and patient is not hypoxic. General: Well-appearing and in no apparent distress. Skin: Warm, dry, no pallor noted. No rash. Head: Normocephalic, atraumatic. Neck: Supple, non-tender. Eye: Pupils are equal, round and EOMI. No scleral icterus. Ears, Nose, Mouth, and Throat: TM are clear, no nasal mucosal hypertrophy. Oral mucosa is moist, no posterior oropharynx erythema, uvula is mid-line Cardiovascular: Regular Rate and Rhythm without murmur, gallop or rub. Respiratory: No accessory muscle use or respiratory distress. Lungs are clear to auscultation, no wheezing, rales or rhonchi Chest Wall: no tenderness Back: No midline thoracic or lumbar vertebral tenderness. No CVA tenderness Musculoskeletal: normal ROM, no calf or popliteal tenderness, no lower extremity edema/swelling GI: Abdomen is soft, non-distended. Normal bowel sounds. No masses appreciated. No tenderness to palpation. No rebound, guarding, or rigidity noted. Neurological: A&O x4. No cranial nerve dysfunction observed. No truncal ataxia. Moves all extremities. Sensation intact. Psychiatric: Cooperative and interactive. Normal mood and affect. Constitutional Vital Signs, click to edit/add: Last Vital Signs Temp 97.8 F 12/05/24 12:16 Pulse 70 12/05/24 12:16 Resp 20 12/05/24 12:16 BP 144/94 H 12/05/24 12:16 Pulse Ox 99 12/05/24 12:16 O2 Del Method Room Air 12/05/24 12:16 Course Vital Signs Vital signs: Vital Signs Temperature 97.8 F 12/05/24 12:16 Pulse Rate 70 12/05/24 12:16 Respiratory Rate 12/05/24 12:16 Blood Pressure 144/94 H 12/05/24 12:16 Pulse Oximetry 99 12/05/24 12:16 Oxygen Delivery Method Room Air 12/05/24 12:16 Temperature 97.8 F 12/05/24 12:16 Pulse Rate 70 12/05/24 12:16 Respiratory Rate 12/05/24 12:16 Blood Pressure 144/94 H 12/05/24 12:16 Pulse Oximetry 99 12/05/24 12:16 Oxygen Delivery Method Room Air 12/05/24 12:16 MDM - Abdominal Pain MDM Narrative Medical decision making narrative: The patient examination of the abdomen was completely benign there was no hernia and there is no point of tenderness on examination The patient CBC and chemistry showed no acute pathology and urinalysis as well Right now the pain could be secondary to abdominal wall pain Patient was provided with Toradol instructed to monitor her symptoms she is to come back to the ER in case of new symptoms or concerns The patient is to follow up with primary care physician in next 2-3 days or to return to the emergency department should any of the signs or symptoms worsen or new symptoms develop. The patient agrees with the following Diagnosis and Treatment plan and the patient will be discharged home. Lab Data Labs: Lab Results 12/05/24 12/05/24 Range/Units 12:50 12:55 WBC 7.5 (4.0-11.0) 10^3/uL RBC 5.01 (4.20-5.40) 10^6/uL Hgb 15.0 (12.0-16.0) g/dL Hct 42.8 (36.0-48.0) % MCV 85.4 (81.0-99.0) fL MCH 29.9 (26.7-34.0) pg MCHC 35.0 (29.9-35.2) g/dL RDW 12.0 (11.0-15.0) % Plt Count 210 (150-450) 10^3/uL MPV 9.3 L (9.5-13.5) fL Neut % (Auto) 54.4 (43.0-75.0) % Lymph % (Auto) 38.4 (20.5-60.0) % [place] % (Auto) 5.1 (1.7-12.0) % Eos % (Auto) 1.5 (0.9-7.0) % Baso % (Auto) 0.5 (0.2-2.0) % Neut # (Auto) 4.1 (1.4-6.5) 10^3/uL Lymph # (Auto) 2.9 (1.2-3.8) 10^3/uL [place] # (Auto) 0.4 (0.3-0.8) 10^3/uL Eos # (Auto) 0.1 (0.0-0.7) 10^3/uL Baso # (Auto) 0.0 (0.0-0.1) 10^3/uL Abs Immat Gran (auto) 0.01 (0.00-0.03) 10^3/uL Imm/Tot Granulo (auto) 0.1 (0.0-0.5) % Sodium 144 (136-145) mmol/L Potassium 4.1 (3.5-5.1) mmol/L Chloride 105 (98-107) mmol/L Carbon Dioxide 28.3 (21.0-32.0) mmol/L Anion Gap 14.8 BUN 12.0 (7.0-18.0) mg/dL Creatinine 0.80 (0.55-1.02) mg/dL Est GFR ( Amer) >60 (>=60 mL/min/1.73m^2) Est GFR (Non-Af Amer) >60 (>=60 mL/min/1.73m^2) BUN/Creatinine Ratio 15.0 Glucose 133 H (74-106) mg/dL Lactate 1.2 (0.4-2.0) mmol/L Calcium 8.8 (8.5-10.1) mg/dL Total Bilirubin 0.4 (0.2-1.0) mg/dL AST 16 (15-37) U/L ALT 43 (14-59) U/L Alkaline Phosphatase 118 H (46-116) U/L Total Protein 7.0 (6.4-8.2) g/dL Albumin 3.6 (3.4-5.0) g/dL Globulin 3.4 g/dL Albumin/Globulin Ratio 1.1 Urine Color Lt. yellow (YELLOW) Urine Clarity Clear (CLEAR) Urine pH 6.5 (5.0-9.0) Ur Specific [place] <=1.005 A (1.005-1.025) Urine Protein Negative (NEG/TRACE) mg/dL Urine Glucose (UA) Negative (NEGATIVE) mg/dL Urine Ketones Negative (NEGATIVE) mg/dL Urine Occult Blood Negative (NEGATIVE) Urine Nitrite Negative (NEGATIVE) Urine Bilirubin Negative (NEGATIVE) Urine Urobilinogen 0.2 (0.2-1.0) EU/dL Ur Leukocyte Esterase Negative (NEGATIVE) Discharge Plan Discharge Chief Complaint: Abdominal Pain Clinical Impression: Abdominal wall pain Patient Disposition: Home, Self-Care Time of Disposition Decision: 13:33 Condition: Good Prescriptions / Home Meds: No Action Aristada 1,064 mg/3.9 mL suspension,extended rel syring 1,064 mg IM .every 2 months bupropion HCl 75 mg tablet 75 mg PO DAILY Auvelity 45-105 mg tablet, IR and ER, biphasic PO insulin glargine [Lantus U-100 Insulin] 100 unit/mL solution 25 unit SUBCUT BID olanzapine 2.5 mg tablet 2.5 mg PO BID PRN (Reason: anxiety) pantoprazole 40 mg tablet,delayed release (DR/EC) 40 mg PO DAILY pregabalin 25 mg capsule pregabalin 50 mg capsule 50 mg PO DAILY PRN (Reason: restles legs) rosuvastatin 10 mg tablet 10 mg PO DAILY Ozempic 2 mg/dose (8 mg/3 mL) pen injector 2 mg SUBCUT .weekly Print Language: Croatian Instructions: Abdominal Pain (ED) Referrals: Kendell Rose MD [Primary Care Provider] - 1 week
[2024-12-05] MEDS: KETOROLAC TROMETHAMINE 60 MG/2 ML VIAL IM (13:40)
== END 2024-12-05 13:44 | disposition home or self-care (01) ==
PROVIDERS: Emergency Provider Emergency Medicine; PCP Family Medicine
DX: R10.30 Lower abdominal pain, unspecified (principal); Z90.710 Acquired absence of both cervix and uterus
CPT/HCPCS: 36415; 80053; 81003; 83605; 85025; 96372; 99285; J1885

== ENCOUNTER 2025-03-23 07:37 | Outpatient (OUT) | payer OTHER, SELFPAY ==
[2025-03-23 08:12] LABS: Estimated Average Glucose 128 mg/dL; Glycohemoglobin A1C 6.1 % (4.5-6.2)
[2025-03-23 08:39] LABS: Alanine Aminotransferase 32 U/L (14-59); Albumin Globulin Ratio 1.1; Albumin Level 3.5 g/dL (3.4-5.0); Alkaline Phosphatase 90 U/L (46-116); Anion Gap 7.9; Aspartate Amino Transferase 17 U/L (15-37); BUN Creatinine Ratio 10.7; Bilirubin Total 0.3 mg/dL (0.2-1.0); Calcium 8.6 mg/dL (8.5-10.1); Carbon Dioxide 30.8 mmol/L (21.0-32.0); Chloride 105 mmol/L (98-107); Chol HDL Ratio 4.6; Cholesterol 169 mg/dL (<=200); Estimated GFR (African America >60 (>=60 mL/min/1.73m^2); Estimated GFR (Non-African Ame >60 (>=60 mL/min/1.73m^2); Free T3 3.03 pg/mL (2.18-3.98); Globulin 3.1 g/dL; Glucose 180 mg/dL (74-106); HDL Cholesterol 37 mg/dL (40-60); Potassium 3.7 mmol/L (3.5-5.1); Sodium 140 mmol/L (136-145); Thyroid Stimulating Hormone 1.647 uIU/mL (0.358-3.740); Total Protein 6.6 g/dL (6.4-8.2); Triglycerides 319 mg/dL (<=150); VLDL CHOLESTEROL 63.8 mg/dL
[2025-03-23 09:16] LABS: Basophils Percent Auto 0.4 % (0.2-2.0); Eosinophils Absolute Auto 0.4 10^3/uL (0.0-0.7); Eosinophils Percent Auto 5.5 % (0.9-7.0); Hematocrit 41.4 % (36.0-48.0); Immature Granulocytes Abs Auto 0.02 10^3/uL (0.00-0.03); Immature Granulocytes Pct Auto 0.3 % (0.0-0.5); Lymphocytes Percent Auto 40.8 % (20.5-60.0); Mean Corpuscular HGB Conc 33.8 g/dL (29.9-35.2); Mean Corpuscular Hemoglobin 29.5 pg (26.7-34.0); Mean Corpuscular Volume 87.3 fL (81.0-99.0); Mean Platelet Volume 9.7 fL (9.5-13.5); Monocytes Absolute Auto 0.5 10^3/uL (0.3-0.8); Monocytes Percent Auto 6.5 % (1.7-12.0); Neutrophils Absolute Auto 3.4 10^3/uL (1.4-6.5); Neutrophils Percent Auto 46.5 % (43.0-75.0); Platelet Count 209 10^3/uL (150-450); Red Blood Count 4.74 10^6/uL (4.20-5.40); Red Cell Distribution Width 12.6 % (11.0-15.0); White Blood Count 7.3 10^3/uL (4.0-11.0)
[2025-03-23 13:38] LABS: Internal Control Within Normal Limits; Occult Blood Positive
== END 2025-03-23 07:38 | disposition home or self-care (01) ==
LOC: LAB 07:39
PROVIDERS: PCP Family Medicine; Visit Provider Family Medicine
DX: R10.84 Generalized abdominal pain (principal); E13.9 Other specified diabetes mellitus without complications; E78.5 Hyperlipidemia, unspecified
CPT/HCPCS: 36415; 80053; 80061; 83036; 84436; 84443; 84481; 85025; G0328